=== PATIENT | female | born 1960 | race Caucasian/White ===

== ENCOUNTER 2016-10-07 17:32 | Observation (INO) | payer MEDICARE, OTHER ==
[2016-10-07] VITALS (9 sets, daily range): BP systolic 86–132; BP diastolic 50–82; PULSE 75–88; RESP 16–22; TEMP 98.2–98.7; O2SAT 94–96
[~2016-10-07] VITALS: Ht 172.7 cm; Wt 150.7 kg
[2016-10-07] MEDS ORDERED: SODIUM CHLOR 0.9% 1000 ML INJ 1,000 ML IV ONE ×2 (18:00→21:00)
[2016-10-07] MEDS ORDERED: KETOROLAC TROMETHAMINE 30 MG/ML (IVP) VIAL IVP ONE (18:00)
[2016-10-07] MEDS ORDERED: SODIUM CHLORIDE 0.9% FLUSH 10 ML FLUSH IVF PRN ×2 (18:00→21:15)
[2016-10-07] MEDS ORDERED: ONDANSETRON HCL 4 MG/2 ML VIAL IVP ONE (18:00)
--- NOTE | 2016-10-07 18:07 | PD ---
HPI Chief Complaint: Dizziness Time Seen by Provider: 17:57 Travel History International Travel<30 days: No Contact w/Intl Traveler<30days: No Traveled to known affect area: No History of Present Illness HPI 56-year-old female presents with lightheaded feeling, dysuria and lower abdominal pain over the past couple of days. She states she feels worse when she moves around. She denies other concurrent complaints. Quality is lightheaded. She states that she's been having intermittent dark stools. She notes prior history of urinary tract infections but denies history of bleeding or stones. She states that she is off her pain medication after she had back surgery. She denies modifying factors other than movement. PFSH Past Medical History Respiratory: Yes (asthma) ?: Not Past Surgical History Hysterectomy: Yes Social History Tobacco Use: No Allergies-Medications (Allergen,Severity, Reaction): Coded Allergies: Vancomycin (Verified Allergy, Intermediate, rash, 10/07/16) Reported Meds & Prescriptions Reported Meds & Active Scripts Active Zofran Odt (Ondansetron Odt) 4 Mg Tab 4 Mg SL Q6HR PRN Reported Combivent Respimat Inh (Ipratropium-Albuterol Inh) 20-100 [facility]/Act Aero 1 Puff INH QID Potassium Chloride ER (Potassium Chloride) 10 Meq Cap 10 Meq PO DAILY Omeprazole 20 Mg Tab 20 Mg PO DAILY Cymbalta DR (Duloxetine HCl) 60 Mg Capdr 60 Mg PO DAILY Cymbalta DR (Duloxetine HCl) 30 Mg Capdr 30 Mg PO DAILY Review of Systems Except as stated in HPI: all other systems reviewed are Neg Physical Exam Narrative GENERAL: Well-nourished, well-developed patient. uncomfortable SKIN: Warm and dry. HEAD: Normocephalic and atraumatic. EYES: No injection or drainage. ENT: No nasal drainage noted. NECK: Supple, trachea midline. CARDIOVASCULAR: Regular rate and rhythm RESPIRATORY: Breath sounds equal bilaterally. No accessory muscle use. GASTROINTESTINAL: Abdomen soft, ttp diffusely, nondistended. RECTAL EXAM: Performed with flat locker and after permission. No external hemorrhoid or fissure, stool is brown, non-bloody. NEUROLOGICAL: Awake and alert. Motor and sensory grossly within normal limits. Normal speech. Data Data Last Documented VS Orders Urinalysis - C+S If Indicated (10/07/16 17:34) Complete Blood Count With Diff (10/07/16 17:58) Comprehensive Metabolic Panel (10/07/16 17:58) Ct Abd/Pel W/O Iv Contrast (10/07/16 17:58) Ketorolac Inj (Toradol Inj) (10/07/16 18:00) Ondansetron Inj (Zofran Inj) (10/07/16 18:00) Sodium Chloride 0.9% Flush (Ns Flush) (10/07/16 18:00) Sodium Chlor 0.9% 1000 Ml Inj (Ns 1000 M (10/07/16 18:00) Lipase (10/07/16 17:58) Orthostatic Vital Signs (10/07/16 20:13) Hemoglobin (Hgb) (10/07/16 20:48) Drug Screen, Random Urine (10/07/16 20:48) Albuterol Neb (Albuterol Neb) (10/07/16 21:00) D-Dimer (10/07/16 20:48) Sodium Chlor 0.9% 1000 Ml Inj (Ns 1000 M (10/07/16 21:00) Chest, Single Ap (10/07/16 ) Diet Regular Basic (10/08/16 Breakfast) Vital Signs (Adult) EFREN.Q4H (10/07/16 21:08) Resp Oxygen Anatoliy C Titrat 1-4 L (10/07/16 ) Sodium Chlor 0.9% 1000 Ml Inj (Ns 1000 M (10/07/16 21:15) Ondansetron Inj (Zofran Inj) (10/07/16 21:15) Home Designer / Telemetry EFREN.Q8H (10/07/16 21:10) Admit Order (Ed Use Only) (10/07/16 ) ^ Saline Lock (10/07/16 21:13) Resp Oxygen Anatoliy C Titrat 1-4 L (10/07/16 ) Notify Dr: Other (10/07/16 21:13) Sodium Chloride 0.9% Flush (Ns Flush) (10/08/16 09:00) Sodium Chloride 0.9% Flush (Ns Flush) (10/07/16 21:15) Labs MDM Medical Decision Making Medical Screen Exam Complete: Yes Emergency Medical Condition: Yes Medical Record Reviewed: Yes (past history confirmed) Interpretation(s) CBC & BMP Diagram 10/07/16 18:00 ct abdomen pelvis no acute ua no uti Differential Diagnosis Stone, diverticulitis, anemia, renal failure, UTI Narrative Course Will check blood work, urinalysis, CT scan abdominal pelvis and dose with IV fluids, Toradol, Zofran and reevaluate ed workup no acute, given strict return precautions Diagnosis Primary Impression: Abdominal pain Qualified Code: R10.9 - Abdominal pain, unspecified location Additional Impression: Nausea Patient Instructions: General Instructions Additional Instructions: zofran and tylenol as needed, follow with gi, return as needed Med/Other Pt SpecificInfo: Prescription(s) given Scripts Furosemide 20 Mg Tab20 Mg PO DAILY #30 TAB Ref 0 Prov:Chau Hope MD 10/10/16 Spironolactone 25 Mg Tab25 Mg PO DAILY #30 TAB Ref 0 Prov:Chau Hope MD 10/10/16 Gabapentin (Neurontin)300 Mg [id number] Mg PO TID 30 Days Prov:Chau Hope MD 10/10/16 Ondansetron Odt (Zofran Odt)4 Mg Tab4 Mg SL Q6HR PRN (Nausea/Vomiting) #10 TAB Prov:Lexii Pacheco MD 10/07/16 Disposition: 01 DISCHARGE HOME Condition: Stable Lexii Pacheco MD Oct 07, 2016 18:07 Differential Comment Urine Color YELLOW Urine Turbidity CLEAR Urine pH 6.5 Urine Specific [place] 1.005 Urine Protein NEG mg/dL Urine Glucose (UA) NEG mg/dL Urine Ketones NEG mg/dL Urine Occult Blood NEG Urine Nitrite NEG Urine Bilirubin NEG Urine Leukocyte Esterase NEG Urine RBC 0-2 /hpf Urine WBC 0-2 /hpf Urine Squamous Epithelial 0-5 /hpf Cells Urine Bacteria NONE /hpf Microscopic Urinalysis Comment CULT NOT INDICATED Sodium Level 139 MEQ/L Potassium Level 4.4 MEQ/L Chloride Level 101 MEQ/L Carbon Dioxide Level 29.5 MEQ/L Anion Gap 9 MEQ/L Blood Urea Nitrogen 13 MG/DL Creatinine 0.96 MG/DL Estimat Glomerular Filtration 60 ML/MIN Rate Random Glucose 88 MG/DL Calcium Level 8.7 MG/DL Total Bilirubin 0.4 MG/DL Aspartate Amino Transf 39 U/L (AST/SGOT) Alanine Aminotransferase 71 U/L (ALT/SGPT) Alkaline Phosphatase 98 U/L Total Protein 7.2 GM/DL Albumin 3.3 GM/DL Lipase 136 U/L MDM Medical Decision Making Medical Screen Exam Complete: Yes Emergency Medical Condition: Yes Medical Record Reviewed: Yes (past history confirmed) Interpretation(s) CBC & BMP Diagram 10/07/16 18:00 ct abdomen pelvis no acute ua no uti Differential Diagnosis Stone, diverticulitis, anemia, renal failure, UTI Narrative Course Will check blood work, urinalysis, CT scan abdominal pelvis and dose with IV fluids, Toradol, Zofran and reevaluate ed workup no acute Diagnosis Primary Impression: Abdominal pain Qualified Code: R10.9 - Abdominal pain, unspecified location Additional Impression: Nausea Patient Instructions: General Instructions Additional Instructions: zofran and tylenol as needed, follow with gi, return as needed Med/Other Pt SpecificInfo: Prescription(s) given Scripts Ondansetron Odt (Zofran Odt)4 Mg Tab4 Mg SL Q6HR PRN (Nausea/Vomiting) #10 TAB Prov:Lexii Pacheco MD 10/07/16 Disposition: 01 DISCHARGE HOME Condition: Stable Lexii Pahceco MD Oct 07, 2016 18:07 Scripts Ondansetron Odt (Zofran Odt)4 Mg Tab4 Mg SL Q6HR PRN (Nausea/Vomiting) #10 TAB Prov:Lexii Pacheco MD 10/07/16 Disposition: 01 DISCHARGE HOME Condition: Stable Lexii Pacheco MD Oct 07, 2016 18:07
[2016-10-07 18:22] LABS: AUTOMATED NEUTROPHIL # 5.2 TH/MM3 (1.8-7.7); BASOPHIL # 0.1 TH/MM3 (0-0.2); BASOPHIL % 0.8 % (0.0-2.0); EOSINOPHIL % 0.1 % (0.0-4.0); HEMATOCRIT 39.1 % (35.0-46.0); HEMO FLAGS DIFF FINAL; LYMPH % 30.1 % (9.0-44.0); LYMPHOCYTE # 2.4 TH/MM3 (1.0-4.8); MEAN CELL VOLUME 87.2 FL (80.0-100.0); MEAN CORPUSCULAR HEMOGLOBIN 29.8 PG (27.0-34.0); MEAN CORPUSCULAR HGB CONC 34.2 % (32.0-36.0); MONO % 5.5 % (0.0-8.0); NEUT % 63.5 % (16.0-70.0); PLATELET COUNT 237 TH/MM3 (150-450); RED BLOOD COUNT 4.48 MIL/MM3 (4.00-5.30); RED CELL DISTRIBUTION WIDTH 13.3 % (11.6-17.2); WHITE BLOOD COUNT 8.1 TH/MM3 (4.0-11.0)
[2016-10-07 18:28] LABS: BLOOD, URINE NEG (NEG); GLUCOSE,URINE NEG (NEG); KETONE, URINE NEG (NEG); NITRITE,URINE NEG (NEG); PH, URINE 6.5 (5.0-8.5)
[2016-10-07 18:30] LABS: CHLORIDE 101 MEQ/L (98-107); POTASSIUM 4.4 MEQ/L (3.5-5.1); SODIUM (NA) 139 MEQ/L (136-145)
[2016-10-07 18:34] LABS: ANION GAP 9 MEQ/L (5-15); BICARBONATE 29.5 MEQ/L (21.0-32.0); BLOOD UREA NITROGEN 13 MG/DL (7-18)
[2016-10-07 18:37] LABS: ALT (GPT) 71 U/L (10-53); AST (GOT) 39 U/L (15-37); GLOMERULAR FILTRATION RATE 60 ML/MIN (>89)
[2016-10-07 18:38] LABS: TOTAL BILIRUBIN ADULT 0.4 MG/DL (0.2-1.0)
[2016-10-07] MEDS ORDERED: CYMB30CA PO (18:39)
[2016-10-07] MEDS ORDERED: CYMB60CA PO (18:39)
[2016-10-07 18:40] LABS: ALKALINE PHOSPHATASE 98 U/L (45-117)
[2016-10-07 18:43] LABS: URINE COLOR YELLOW (YELLW/STRAW)
[2016-10-07 18:44] LABS: COMMENT (UR) CULT NOT INDICATED; CULTURE IF INDICATED CULT NOT INDICATED; RBC, URINE 0-2 /hpf (0-3); SQUAMOUS EPITHELIAL CELL URINE 0-5 /hpf (0-5); WBC, URINE 0-2 /hpf (0-5)
[2016-10-07] MEDS ORDERED: GABA800T PO (18:45)
[2016-10-07] MEDS ORDERED: ZOLP10TA3 PO (18:45)
[2016-10-07] MEDS ORDERED: IBUP800T23 PO (18:45)
[2016-10-07] MEDS ORDERED: POTA10CA PO (18:45)
[2016-10-07] MEDS ORDERED: METH500T3 PO (18:45)
[2016-10-07] MEDS ORDERED: OMEP20TA PO (18:45)
[2016-10-07] MEDS ORDERED: SPIR50TA PO (18:45)
[2016-10-07] MEDS ORDERED: TIZA4CAP3 PO (18:47)
[2016-10-07] MEDS ORDERED: IPRAAER INH (18:47)
--- NOTE | 2016-10-07 19:01 | RADHPO ---
EXAM DATE/TIME: 10/07/2016 18:31 [facility] COMPARISON: No previous studies available for comparison. INDICATIONS : Dysuria with lower back pain. ORAL CONTRAST: No oral contrast ingested. RADIATION DOSE: 27.92 CTDIvol (mGy) MEDICAL HISTORY : None SURGICAL HISTORY : Hysterectomy. Fusion, lumbar. There is no constipation. No bowel obstruction. No adenopathy. ENCOUNTER: Initial ACUITY: 2 weeks PAIN SCALE: 8/10 LOCATION: Bilateral Paraspinal TECHNIQUE: Volumetric scanning of the abdomen and pelvis was performed. Using automated exposure control and ad justment of the mA and/or kV according to patient size, radiation dose was kept as low as reasonably achievable to obtain optimal diagnostic quality images. FINDINGS: Lung bases are clear. No acute findings within the visualized liver, spleen, adrenals, kidneys or thomason creas. No calcified gallstones or biliary ductal dilatation. Postoperative changes are noted in the lumbar spine with fusion. CONCLUSION: 1. No acute findings. Specifically no renal calculi or evidence for obstructive uropathy. 2. Previous fusion lower lumbar spine. 3. Mild constipation. Parker Hidalgo MD on October 07, 2016 at 18:55 Board Certified Radiologist. This report was verified electronically.
[2016-10-07] MEDS ORDERED: ZOFR4TAB3 SL (19:02)
[2016-10-07] MEDS ORDERED: RESP: ALBUTEROL 2.5 MG/3 ML NEB (SCH) NEB ONE (21:00)
[2016-10-07] MEDS ORDERED: ONDANSETRON HCL 4 MG/2 ML VIAL IV PUSH PRN (21:15)
[2016-10-07] MEDS: SODIUM CHLOR 0.9% 1000 ML INJ 1,000 ML IV SCH (21:15)
[2016-10-07 21:21] LABS: AMPHETAMINE, URINE NEG (NEG)
[2016-10-07 21:22] LABS: BARBITURATES, URINE NEG (NEG)
[2016-10-07 21:31] LABS: MAGNESIUM 2.1 MG/DL (1.5-2.5)
[2016-10-07 21:37] LABS: COCAINE, URINE NEG (NEG)
[2016-10-07 21:40] LABS: CREATINE KINASE 60 U/L (26-192)
--- NOTE | 2016-10-07 21:58 | RADHPO ---
EXAM DATE/TIME: 10/07/2016 21:03 [facility] COMPARISON: No previous studies available for comparison. INDICATIONS : Short of breath and dizziness. MEDICAL HISTORY : Hysterectomy. Fusion, lumbar. SURGICAL HISTORY : None. ENCOUNTER: Initial ACUITY: 1 day PAIN SCORE: 0/10 LOCATION: Bilateral chest FINDINGS: A single view of the chest demonstrates the lungs to be symmetrically aerated without evidence of mas s, infiltrate or effusion. The cardiomediastinal contours are unremarkable. Osseous structures are intact. CONCLUSION: No acute disease. Parker Hidalgo MD on October 07, 2016 at 21:55 Board Certified Radiologist. This report was verified electronically.
--- NOTE | 2016-10-07 22:03 | PD ---
Physical Exam Date Seen by Provider: Oct 07, 2016 Time Seen by Provider: 19:45 Narrative GENERAL: Well-developed obese female in no acute distress no respiratory distress with hypotensive blood pressure and room air O2 sat of 90% SKIN: Warm and dry. HEAD: Normocephalic. EYES: No scleral icterus. No injection or drainage. NECK: Supple, trachea midline. No JVD or lymphadenopathy. CARDIOVASCULAR: Regular rate and rhythm without murmurs, gallops, or rubs. RESPIRATORY: Breath sounds equal bilaterally. No accessory muscle use. GASTROINTESTINAL: Abdomen soft, non-tender, nondistended. MUSCULOSKELETAL: No cyanosis, or edema. BACK: Nontender without obvious deformity. No CVA tenderness. Data Data Last Documented VS Vital Signs Date Time Temp Pulse Resp B/P Pulse Ox O2 Delivery O2 Flow Rate FiO2 10/07/16 21:00 94 21 10/07/16 20:49 76 18 86/51 Room Air 10/07/16 19:50 98.2 Orders Urinalysis - C+S If Indicated (10/07/16 17:34) Complete Blood Count With Diff (10/07/16 17:58) Comprehensive Metabolic Panel (10/07/16 17:58) Ct Abd/Pel W/O Iv Contrast (10/07/16 17:58) Ketorolac Inj (Toradol Inj) (10/07/16 18:00) Ondansetron Inj (Zofran Inj) (10/07/16 18:00) Sodium Chloride 0.9% Flush (Ns Flush) (10/07/16 18:00) Sodium Chlor 0.9% 1000 Ml Inj (Ns 1000 M (10/07/16 18:00) Lipase (10/07/16 17:58) Orthostatic Vital Signs (10/07/16 20:13) Hemoglobin (Hgb) (10/07/16 20:48) Drug Screen, Random Urine (10/07/16 20:48) Albuterol Neb (Albuterol Neb) (10/07/16 21:00) D-Dimer (10/07/16 20:48) Sodium Chlor 0.9% 1000 Ml Inj (Ns 1000 M (10/07/16 21:00) Chest, Single Ap (10/07/16 ) Diet Regular Basic (10/08/16 Breakfast) Vital Signs (Adult) EFREN.Q4H (10/07/16 21:08) Resp Oxygen Anatoliy C Titrat 1-4 L (10/07/16 ) Sodium Chlor 0.9% 1000 Ml Inj (Ns 1000 M (10/07/16 21:15) Ondansetron Inj (Zofran Inj) (10/07/16 21:15) Deckhand Clam Dredge / Telemetry EFREN.Q8H (10/07/16 21:10) Admit Order (Ed Use Only) (10/07/16 ) ^ Saline Lock (10/07/16 21:13) Resp Oxygen Anatoliy C Titrat 1-4 L (10/07/16 ) ^ Notify Dr: Other (10/07/16 21:13) Sodium Chloride 0.9% Flush (Ns Flush) (10/08/16 09:00) Sodium Chloride 0.9% Flush (Ns Flush) (10/07/16 21:15) Labs Laboratory Tests Test 10/07/16 10/07/16 10/07/16 10/07/16 18:00 18:13 18:18 20:15 White Blood Count 8.1 TH/MM3 Red Blood Count 4.48 MIL/MM3 Hemoglobin 13.4 GM/DL 12.0 GM/DL Hematocrit 39.1 % Mean Corpuscular Volume 87.2 FL Mean Corpuscular Hemoglobin 29.8 PG Mean Corpuscular Hemoglobin 34.2 % Concent Red Cell Distribution Width 13.3 % Platelet Count 237 TH/MM3 Mean Platelet Volume 8.5 FL Neutrophils (%) (Auto) 63.5 % Lymphocytes (%) (Auto) 30.1 % Monocytes (%) (Auto) 5.5 % Eosinophils (%) (Auto) 0.1 % Basophils (%) (Auto) 0.8 % Neutrophils # (Auto) 5.2 TH/MM3 Lymphocytes # (Auto) 2.4 TH/MM3 Monocytes # (Auto) 0.4 TH/MM3 Eosinophils # (Auto) 0.0 TH/MM3 Basophils # (Auto) 0.1 TH/MM3 CBC Comment DIFF FINAL Differential Comment Urine Color YELLOW Urine Turbidity CLEAR Urine pH 6.5 Urine Specific [place] 1.005 Urine Protein NEG mg/dL Urine Glucose (UA) NEG mg/dL Urine Ketones NEG mg/dL Urine Occult Blood NEG Urine Nitrite NEG Urine Bilirubin NEG Urine Leukocyte Esterase NEG Urine RBC 0-2 /hpf Urine WBC 0-2 /hpf Urine Squamous Epithelial 0-5 /hpf Cells Urine Bacteria NONE /hpf Microscopic Urinalysis Comment CULT NOT INDICATED Sodium Level 139 MEQ/L Potassium Level 4.4 MEQ/L Chloride Level 101 MEQ/L Carbon Dioxide Level 29.5 MEQ/L Anion Gap 9 MEQ/L Blood Urea Nitrogen 13 MG/DL Creatinine 0.96 MG/DL Estimat Glomerular Filtration 60 ML/MIN Rate Random Glucose 88 MG/DL Calcium Level 8.7 MG/DL Total Bilirubin 0.4 MG/DL Aspartate Amino Transf 39 U/L (AST/SGOT) Alanine Aminotransferase 71 U/L (ALT/SGPT) Alkaline Phosphatase 98 U/L Total Protein 7.2 GM/DL Albumin 3.3 GM/DL Lipase 136 U/L Magnesium Level 2.1 MG/DL Total Creatine Kinase 60 U/L Troponin I LESS THAN 0.02 NG/ML D-Dimer Quantitative (PE/DVT) 0.40 MG/L FEU Urine Opiates Screen NEG Urine Barbiturates Screen NEG Urine Amphetamines Screen NEG Urine Benzodiazepines Screen NEG Urine Cocaine Screen NEG Urine Cannabinoids Screen NEG [facility] Medical Record Reviewed: Yes Supervised Visit with MERRICK: No Interpretation(s) EKG normal sinus rhythm rate [address] elevation or injury pattern change noted no ectopy age-indeterminate QS inferiorly Troponin I: Less than 0.02; CK: 60, not elevated Repeat hemoglobin 12, this is after 1 L normal saline D-dimer is within normal range at 0.4, not elevated Urine drug screen negative Last Impressions Abdomen/Pelvis CT 10/07/16 1758 Signed Impressions: Service Date/Time: Friday, October 07, 2016 18:31 - CONCLUSION: 1. No acute findings. Specifically no renal calculi or evidence for obstructive uropathy. 2. Previous fusion lower lumbar spine. 3. Mild constipation. Parker Hidalgo MD Chest X-Ray 10/07/16 0000 Signed Impressions: Service Date/Time: Friday, October 07, 2016 21:03 - CONCLUSION: No acute disease. Parker Hidalgo MD CBC & BMP Diagram 10/07/16 18:00 10/07/16 20:15 Differential Diagnosis please refer to Dr Pacheco's dictation Narrative Course Accepted in transfer of care from Dr. Pacheco for follow-up of response to IV fluids after hypotensive episode and patient disposition After 1 L of normal saline patient continues to have episodes of hypotension with complaint of generalized weakness and intermittent O2 saturations that dipped to the 90- 91% range but with repositioning and stimulation patient saturations returned to 95-96%; patient continues to complain of generalized weakness reporting she is progressively felt worse over the past 2 weeks. Patient moved here at the beginning of August from [place]. Patient is not established with primary care provider she had refills of her chronic medications from her previous provider. Due to recurrent episodes of low blood pressure additional liter of normal saline administered EKG performed which is sinus rhythm with age indeterminate Q waves inferiorly in lead [address] elevation or injury pattern change noted rate 78. Patient's case discussed with on-call have his physician will place patient is an observation here at [place] is aware that additional tests have been ordered. CK and troponin added 60/less than 0.02 respectively. Hemoglobin performed which is 12 but this is after a liter of normal saline d-dimer obtained at 0.4 not elevated and urine drug screen is negative. Patient also given albuterol updraft treatment times one Physician Communication Physician Communication discussed with Dr Chang -- obs admit to [facility] --request update of abnormal findings---aware additional IV fluids Diagnosis Primary Impression: Abdominal pain Qualified Code: R10.9 - Abdominal pain, unspecified location Additional Impressions: Nausea Generalized weakness Dizziness Admitting Information Admitting Physician Requests: Observation Patient Instructions: General Instructions Additional Instruction: zofran and tylenol as needed, follow with gi, return as needed Scripts Ondansetron Odt (Zofran Odt)4 Mg Tab4 Mg SL Q6HR PRN (Nausea/Vomiting) #10 TAB Prov:Lexii Pacheco MD 10/07/16 Disposition: 01 DISCHARGE HOME Condition: Stable Theresa Muro MD Oct 07, 2016 22:03
[2016-10-08] VITALS (7 sets, daily range): BP systolic 104–163; BP diastolic 75–100; PULSE 76–82; RESP 17–20; TEMP 97.3–98.7; O2SAT 92–95
[2016-10-08] MEDS ORDERED: KETOROLAC TROMETHAMINE 30 MG/ML (IVP) VIAL IV PUSH ONE (04:30)
[2016-10-08] MEDS: SODIUM CHLOR 0.9% 1000 ML INJ 1,000 ML IV SCH ×2 (05:26→17:15)
[2016-10-08] MEDS: SODIUM CHLORIDE 0.9% FLUSH 10 ML FLUSH IV FLUSH SCH ×2 (07:12→21:00)
--- NOTE | 2016-10-08 12:53 | EKG ---
Date Performed: 10/07/2016 Time Performed: 21:25:04 PTAGE: 56 years EKG: Sinus rhythm Possible inferior infarct - age undetermined Abnormal ECG NO PREVIOUS TRACING DOCTOR: True Wang Interpretating Date/Time 10/08/2016 12:52:26
[2016-10-08] MEDS ORDERED: MAGNESIUM HYDROXIDE SUSP 30 ML CUP PO PRN (14:15)
--- NOTE | 2016-10-08 14:15 | HHI.HP ---
HPI Service [facility] Primary Care Physician No Primary Care Physician Admission Diagnosis dizziness; generalized weakness Diagnoses: (1) Abdominal pain Diagnosis: Principal (2) Leg pain, bilateral Diagnosis: Principal (3) Pre-syncope Diagnosis: Principal Chief Complaint: "stomach", back, and leg pain; dizziness Travel History International Travel<30 Days: No Contact w/Intl Traveler <30 Da: No Traveled to Known Affected Are: No History of Present Illness 56-year-old female with history of asthma, chronic back pain and neuropathy, Bipolar disorder, HTN presents with complaint of "stomach" and back and leg pain as well as dizziness/lightheadedness. Patient admits to pain over bilateral lower quadrants, dull ache, constant. Denies any alleviating or exacerbating factors. Her last BM was the day before yesterday. She has had nausea for the past couple of days. She denies any chest pain or vomiting. She states she has had a couple of black stools and denies taking any Pepto- Bismol or iron supplementation but does state she has been taking a lot of Motrin and Aleve for the last week. She additionally states she was treated for UTI 10 days ago and only has mild dysuria at this time which is much improved from prior. She complains of dizziness for the last couple of days feeling like she is off balance and lightheaded upon standing. She admits to a few palpitations when lightheaded. Admits to fatigue and shortness of breath. She uses an inhaler. Patient states she has pain down both legs in the front describing it as sharp and shooting, constant. She has chronic numbness and tingling as she has neuropathy. She denies anything making it better or worse. Denies any recent medication changes. Does not have a regular PCP. Review of Systems Except as stated in HPI: all other systems reviewed are Neg Past Family Social History Past Medical History Asthma Back pain, neuropathy BPD HTN chronic leg swelling Past Surgical History 2 back surgeries Appendectomy Hysterectomy ORIF right and left tib-fib Reported Medications Reported Meds & Active Scripts Active Zofran Odt (Ondansetron Odt) 4 Mg Tab 4 Mg SL Q6HR PRN Reported Tizanidine (Tizanidine HCl) 4 Mg Cap 4 Mg PO QID Combivent Respimat Inh (Ipratropium-Albuterol Inh) 20-100 Usp/Act Aero 1 Puff INH QID Methocarbamol 500 Mg Tab 500 Mg PO QID Ibuprofen 800 Mg Tab 800 Mg PO Q8H PRN Spironolactone 50 Mg Tab 50 Mg PO DAILY Potassium Chloride ER (Potassium Chloride) 10 Meq Cap 10 Meq PO DAILY Omeprazole 20 Mg Tab 20 Mg PO DAILY Gabapentin 800 Mg Tab 800 Mg PO TID Cymbalta DR (Duloxetine HCl) 60 Mg Capdr 60 Mg PO DAILY Cymbalta DR (Duloxetine HCl) 30 Mg Capdr 30 Mg PO DAILY Allergies: Coded Allergies: Vancomycin (Verified Allergy, Intermediate, rash, 10/07/16) Family History Mother: of hypoxia? at age 60. Father: reason of unknown Social History Smokes 5 cigarettes per day; has smoked for 25 years. Denies alcohol use. Denies illicit drug use. Physical Exam Vital Signs Vital Signs Date Time Temp Pulse Resp B/P Pulse Ox O2 Delivery O2 Flow Rate FiO2 10/08/16 12:00 97.7 80 18 163/89 95 10/08/16 08:00 78 10/08/16 08:00 97.9 77 18 104/75 94 10/08/16 07:30 92 21 10/07/16 23:15 98.7 82 20 122/76 95 10/07/16 23:08 116/67 94 10/07/16 21:00 94 21 10/07/16 20:49 76 18 86/51 94 Room Air 10/07/16 20:18 76 18 90/53 86 20 102/68 88 22 119/68 10/07/16 19:50 98.2 75 18 100/57 96 Room Air 10/07/16 19:22 79 18 103/62 96 Room Air 10/07/16 19:06 78 18 86/50 96 Room Air 10/07/16 19:06 18 96 Room Air 10/07/16 17:49 Room Air 10/07/16 17:36 98.5 88 16 132/82 95 Physical Exam GENERAL: Morbidly obese well-developed patient, in no apparent distress. SKIN: No rashes, ecchymoses or lesions. Warm and dry. HEAD: Atraumatic. Normocephalic. EYES: Pupils equal round and reactive. Extraocular motions intact. No scleral icterus. No injection or drainage. ENT: Throat without erythema, tonsillar hypertrophy or exudate. Uvula midline. Airway patent. NECK: No carotid bruits bilaterally. CARDIOVASCULAR: Regular rate and rhythm without murmurs, gallops, or rubs. RESPIRATORY: Clear to auscultation. Breath sounds equal bilaterally. No wheezes , rales, or rhonchi. GASTROINTESTINAL: Hypoactive bowel sounds. Abdomen soft, nondistended. Tender over bilateral lower quadrants, but no guarding. MUSCULOSKELETAL: No lower extremity edema bilaterally. NEUROLOGICAL: Awake and alert. Motor grossly within normal limits. Five out of 5 muscle strength in bilateral arms and legs. Normal speech. Laboratory Laboratory Tests Test 10/07/16 10/07/16 10/07/16 10/07/16 18:00 18:13 18:18 20:15 White Blood Count 8.1 Red Blood Count 4.48 Hemoglobin 13.4 12.0 Hematocrit 39.1 Mean Corpuscular Volume 87.2 Mean Corpuscular Hemoglobin 29.8 Mean Corpuscular Hemoglobin 34.2 Concent Red Cell Distribution Width 13.3 Platelet Count 237 Mean Platelet Volume 8.5 Neutrophils (%) (Auto) 63.5 Lymphocytes (%) (Auto) 30.1 Monocytes (%) (Auto) 5.5 Eosinophils (%) (Auto) 0.1 Basophils (%) (Auto) 0.8 Neutrophils # (Auto) 5.2 Lymphocytes # (Auto) 2.4 Monocytes # (Auto) 0.4 Eosinophils # (Auto) 0.0 Basophils # (Auto) 0.1 CBC Comment DIFF FINAL Differential Comment Urine Color YELLOW Urine Turbidity CLEAR Urine pH 6.5 Urine Specific [place] 1.005 Urine Protein NEG Urine Glucose (UA) NEG Urine Ketones NEG Urine Occult Blood NEG Urine Nitrite NEG Urine Bilirubin NEG Urine Leukocyte Esterase NEG Urine RBC 0-2 Urine WBC 0-2 Urine Squamous Epithelial 0-5 Cells Urine Bacteria NONE Microscopic Urinalysis Comment CULT NOT INDICATED Sodium Level 139 Potassium Level 4.4 Chloride Level 101 Carbon Dioxide Level 29.5 Anion Gap 9 Blood Urea Nitrogen 13 Creatinine 0.96 Estimat Glomerular Filtration 60 Rate Random Glucose 88 Calcium Level 8.7 Total Bilirubin 0.4 Aspartate Amino Transf 39 (AST/SGOT) Alanine Aminotransferase 71 (ALT/SGPT) Alkaline Phosphatase 98 Total Protein 7.2 Albumin 3.3 Lipase 136 Magnesium Level 2.1 Total Creatine Kinase 60 Troponin I LESS THAN 0.02 D-Dimer Quantitative (PE/DVT) 0.40 Urine Opiates Screen NEG Urine Barbiturates Screen NEG Urine Amphetamines Screen NEG Urine Benzodiazepines Screen NEG Urine Cocaine Screen NEG Urine Cannabinoids Screen NEG Result Diagram: 10/07/16201410/07/16 1800 Imaging Last Impressions Abdomen/Pelvis CT 10/07/16 1758 Signed Impressions: Service Date/Time: Friday, October 07, 2016 18:31 - CONCLUSION: 1. No acute findings. Specifically no renal calculi or evidence for obstructive uropathy. 2. Previous fusion lower lumbar spine. 3. Mild constipation. Parker Hidalgo MD Chest X-Ray 10/07/16 0000 Signed Impressions: Service Date/Time: Friday, October 07, 2016 21:03 - CONCLUSION: No acute disease. Parker Hidalgo MD Assessment and Plan Assessment and Plan 56-year-old female with: Abdominal pain: Bilateral lower quadrants, and dull ache in the past few days. Patient has had a couple black stool taking NSAIDs, but rectal exam was performed in the ED with evidence of brown stool and no evidence of blood. Hemoglobin is stable. No elevation in white blood cell count. CT of the abdomen and pelvis shows mild constipation. AST and ALT only minimally elevated. Lipase normal. Afebrile. -Obtain new abdominal x-ray today. -Fleets enema and dose of magnesium hydroxide ordered. Magnesium hydroxide as needed. -Zofran prn nausea -Avoid opiates. Avoid tramadol due to interaction with psych medications. Tylenol for pain. Bilateral leg pain: Patient has neuropathy and she has had previous back surgeries. She has normal strength in both legs. -Continue gabapentin at lower dose Presyncope: Started a couple of days ago. Admits to a few palpitations when lightheaded. Patient had multiple episodes of hypotension, but now is hypertensive at 163/89 at noon although did not receive her BP medication this morning. -Monitor telemetry -Orthostatic vital signs -Echo -Carotid ultrasound -IVF Chronic medical problems: Continue home medications. DVT prevention: SCDs/TEDs. Written by Whit Davis PA-C acting as scribe for Dr. Hope on 10/08/16 at ~ 1345. All or portions of this note were transcribed by scribe [Whit Davis]. I, Dr. Chau Hope personally performed the history, physical exam, and medical decision making; and confirmed the accuracy of the information in the transcribed note. Authenticated by Dr. Chau Hope on 10/08/16 at 23:10. Patient later informed me that she also takes Ariprazole, trazodone, and Lasix. Nurse to amend med rec. Discussed Condition With patient Problem Qualifiers (1) Abdominal pain: Qualified Code: R10.9 - Abdominal pain, unspecified location Whit Davis Oct 08, 2016 14:15 Chau Hope MD Oct 08, 2016 23:11
[2016-10-08] MEDS ORDERED: ONDANSETRON HCL 4 MG/2 ML VIAL IV PUSH PRN (15:00)
[2016-10-08] MEDS ORDERED: SOD PHOSPHATE/SOD BIPHOSPHATE (ADULT) ENEMA 133ML PR ONE (15:15)
[2016-10-08] MEDS ORDERED: MAGNESIUM HYDROXIDE SUSP 30 ML CUP PO ONE (15:15)
--- NOTE | 2016-10-08 15:36 | RADHPO ---
EXAM DATE/TIME: 10/08/2016 15:01 [facility] COMPARISON: No previous studies available for comparison. INDICATIONS : Abdominal pain. Evaluate for obstruction. MEDICAL HISTORY : None. SURGICAL HISTORY : Hysterectomy. Appendectomy. ENCOUNTER: Subsequent ACUITY: 2 weeks PAIN SCORE: 6/10 LOCATION: Abdomen. FINDINGS: There is gas in nondistended loops of small and large bowel. The visualized lower lungs are clear. Prominent degenerative changes in lower lumbar spine with metallic markers suggesting interspace surg ruth. CONCLUSION: No dilated loops of small or large bowel. Dallas Joe MD on October 08, 2016 at 15:33 Board Certified Radiologist. This report was verified electronically.
--- NOTE | 2016-10-08 16:51 | RADHPO ---
EXAM DATE/TIME: 10/08/2016 15:14 [facility] COMPARISON: No previous studies available for comparison. INDICATIONS : Dizziness. MEDICAL HISTORY : Hypercholesterolemia. Hypertension. Hepatitis C. Syncope. Asthma. Arthritis. SURGICAL HISTORY : Appendectomy. Hysterectomy. Oophorectomy. Orthopedic surgery, right hand and bilateral tib/fib. Spi nal surgery. ENCOUNTER: Initial ACUITY: 1 day PAIN SCORE: 0/10 LOCATION: Bilateral neck PEAK SYSTOLIC VELOCITIES (cm/sec): ICA/CCA RATIO: Right: 1.5 Left: 0.9 ICA: Right: 108 Left: 100 CCA: Right: 74 Left: 110 ECA: Right: 178 Left: 119 VERTEBRAL: Right: 51 antegrade Left: 56 antegrade Elevated flow velocities and ICA/CCA ratios have been found to correlate with increased degrees of vessel stenosis, calculated as percentage of diameter relative to a normal segment of distal ICA/CCA FINDINGS: RIGHT CAROTID: No significant stenosis is visualized. The waveforms are within normal limits. LEFT CAROTID: No significant stenosis is visualized. The waveforms are within normal limits. VERTEBRAL ARTERIES: Antegrade flow is seen in both vertebral arteries. MISCELLANEOUS: None. CONCLUSION: No evidence of flow-limiting carotid stenosis. Farshad Herron MD on October 08, 2016 at 16:49 Board Certified Radiologist. This report was verified electronically.
[2016-10-08] MEDS: GABAPENTIN 300 MG CAP PO SCH (18:00)
[2016-10-08] MEDS ORDERED: RESP: ALBUTEROL 2.5 MG/IPRATROPIUM 0.5 MG NEB (PRN) NEB (18:30)
[2016-10-08] MEDS ORDERED: ARIP1TAB13 PO (18:55)
[2016-10-08] MEDS ORDERED: FURO40TA PO (18:56)
[2016-10-08] MEDS ORDERED: TRAZ150T75 PO (18:56)
[2016-10-08] MEDS: ACETAMINOPHEN 325 MG TAB PO PRN (20:36)
[2016-10-09] VITALS: BP 127/84; PULSE 82; RESP 20; TEMP 96.2; O2SAT 95
[2016-10-09 04:00] VITALS: BP 152/71; PULSE 69; RESP 18; TEMP 97.2; O2SAT 95
[2016-10-09] MEDS: ACETAMINOPHEN 325 MG TAB PO PRN ×4 (04:26→22:12)
[2016-10-09] MEDS: SODIUM CHLOR 0.9% 1000 ML INJ 1,000 ML IV SCH ×2 (04:27→13:15)
[2016-10-09 05:28] LABS: AUTOMATED NEUTROPHIL # 3.1 TH/MM3 (1.8-7.7); BASOPHIL % 0.5 % (0.0-2.0); EOSINOPHIL % 0.6 % (0.0-4.0); HEMATOCRIT 37.5 % (35.0-46.0); HEMO FLAGS DIFF FINAL; LYMPH % 33.9 % (9.0-44.0); LYMPHOCYTE # 1.7 TH/MM3 (1.0-4.8); MEAN CELL VOLUME 87.9 FL (80.0-100.0); MEAN CORPUSCULAR HEMOGLOBIN 29.4 PG (27.0-34.0); MEAN CORPUSCULAR HGB CONC 33.5 % (32.0-36.0); MONO % 5.7 % (0.0-8.0); NEUT % 59.3 % (16.0-70.0); PLATELET COUNT 197 TH/MM3 (150-450); RED BLOOD COUNT 4.26 MIL/MM3 (4.00-5.30); RED CELL DISTRIBUTION WIDTH 13.9 % (11.6-17.2); WHITE BLOOD COUNT 5.1 TH/MM3 (4.0-11.0)
[2016-10-09 05:44] LABS: BICARBONATE 30.7 MEQ/L (21.0-32.0); MAGNESIUM 2.4 MG/DL (1.5-2.5); POTASSIUM 4.3 MEQ/L (3.5-5.1)
[2016-10-09 08:00] VITALS: BP 160/87; PULSE 74; RESP 20; TEMP 97.6; O2SAT 96
[2016-10-09] MEDS: SODIUM CHLORIDE 0.9% FLUSH 10 ML FLUSH IV FLUSH SCH ×2 (09:00→21:00)
[2016-10-09] MEDS ORDERED: DULoxetine HCl DR 60 MG CAP PO SCH (09:00)
[2016-10-09] MEDS ORDERED: PNEUMOCOCCAL POLYVALENT INJ 25 MCG/0.5 ML SYR IM ONE (10:00)
[2016-10-09] MEDS: FUROSEMIDE 40 MG TAB PO SCH (10:16)
[2016-10-09] MEDS: POTASSIUM CHLORIDE 10 MEQ CONTROLLED RELEASE TAB PO SCH (10:17)
[2016-10-09] MEDS: GABAPENTIN 300 MG CAP PO SCH ×3 (10:17→16:39)
[2016-10-09] MEDS: DULoxetine HCl DR 30 MG CAP PO SCH (10:17)
[2016-10-09] MEDS: PANTOPRAZOLE SOD 20 MG DELAYED RELEASE TAB PO SCH (10:17)
[2016-10-09] MEDS: SPIRONOLACTONE 50 MG TAB PO SCH (10:17)
[2016-10-09 12:00] VITALS: BP 169/86; PULSE 86; RESP 20; TEMP 96.9; O2SAT 96
[2016-10-09 16:00] VITALS: BP 130/83; PULSE 94; RESP 20; TEMP 98; O2SAT 95
[2016-10-09] MEDS: 1/2 NS + KCL 20 MEQ INJ 1,000 ML IV SCH (16:40)
[2016-10-09 20:00] VITALS: BP 119/71; PULSE 81; PULSE 82; RESP 20; TEMP 97.7; O2SAT 95
[2016-10-09] MEDS ORDERED: ARIPiprazole 15 MG TAB PO SCH (21:00)
--- NOTE | 2016-10-09 23:33 | HHI.PR ---
Subjective Remarks Patient seen today around 2 PM. She says she is feeling better. No abdominal pain. She does report some lightheadedness with walking, however has been up out of bed multiple times. Objective Vital Signs Date Time Temp Pulse Resp B/P Pulse Ox O2 Delivery O2 Flow Rate FiO2 10/09/16 20:00 97.7 81 20 119/71 95 10/09/16 17:44 18 10/09/16 16:00 98.0 94 20 130/83 95 10/09/16 12:00 96.9 86 20 169/86 96 10/09/16 08:00 97.6 74 20 160/87 96 10/09/16 04:00 97.2 69 18 152/71 95 10/09/16 00:00 96.2 82 20 127/84 95 I/O 10/08/16 10/08/16 10/08/16 10/09/16 10/09/16 10/09/16 07:00 15:00 23:00 07:00 15:00 23:00 Intake Total 200 ml 960 ml 240 ml 1050 ml Balance 200 ml 960 ml 240 ml 1050 ml Intake Oral 200 ml 960 ml 240 ml 1050 ml # Voids 1 2 1 5 1 # Bowel Movements 0 0 0 1 Result Diagram: 10/09/16 0436 10/09/16 0436 Objective Remarks GENERAL: obese. Sitting up in bed. Appears comfortable. Alert and oriented 3. SKIN: Warm and dry. HEAD: Normocephalic. EYES: No scleral icterus. No injection or drainage. NECK: Supple, trachea midline. No JVD. CARDIOVASCULAR: Regular rate and rhythm without murmurs, gallops, or rubs. RESPIRATORY: Breath sounds equal bilaterally. No accessory muscle use. GASTROINTESTINAL: Abdomen soft, non-tender, nondistended. MUSCULOSKELETAL: No cyanosis, or edema. BACK: Nontender without obvious deformity. No CVA tenderness. A/P Assessment and Plan 56-year-old female with: //Abdominal pain: Bilateral lower quadrants, and dull ache in the past few days. Patient has had a couple black stool taking NSAIDs, but rectal exam was performed in the ED with evidence of brown stool and no evidence of blood. Hemoglobin is stable. No elevation in white blood cell count. CT of the abdomen and pelvis shows mild constipation. AST and ALT only minimally elevated. Lipase normal. Afebrile. -Obtain new abdominal x-ray today. -Fleets enema and dose of magnesium hydroxide ordered. Magnesium hydroxide as needed. -Zofran prn nausea -Avoid opiates. Avoid tramadol due to interaction with psych medications. Tylenol for pain. -= Constipation resolved. Continue to monitor. //Bilateral leg pain: Patient has neuropathy and she has had previous back surgeries. She has normal strength in both legs. -Continue gabapentin at lower dose //Presyncope: Started a couple of days ago. Admits to a few palpitations when lightheaded. Patient had multiple episodes of hypotension, but now is hypertensive at 163/89 at noon although did not receive her BP medication this morning. -Monitor telemetry -Orthostatic vital signs -Echo still pending. -Carotid ultrasound with no significant stenosis. -IVF = Follow-up echo. //Chronic medical problems: Continue home medications. //DVT prevention: SCDs/TEDs. Discharge Planning pending echocardiogram. Chau Hope MD Oct 09, 2016 23:33
[2016-10-10] VITALS: BP 126/85; PULSE 79; RESP 20; TEMP 96.6; O2SAT 96
[2016-10-10] MEDS: 1/2 NS + KCL 20 MEQ INJ 1,000 ML IV SCH ×2 (03:21→13:54)
[2016-10-10] MEDS: ACETAMINOPHEN 325 MG TAB PO PRN ×3 (03:21→13:53)
[2016-10-10 04:00] VITALS: BP 131/86; PULSE 64; RESP 16; TEMP 96; O2SAT 94
[2016-10-10 08:00] VITALS: BP 106/77; PULSE 100; RESP 18; TEMP 96.5; O2SAT 97
[2016-10-10 08:09] LABS: AUTOMATED NEUTROPHIL # 3.3 TH/MM3 (1.8-7.7); BASOPHIL % 0.5 % (0.0-2.0); EOSINOPHIL % 0.2 % (0.0-4.0); HEMATOCRIT 38.9 % (35.0-46.0); HEMO FLAGS DIFF FINAL; LYMPH % 32.2 % (9.0-44.0); LYMPHOCYTE # 1.8 TH/MM3 (1.0-4.8); MEAN CELL VOLUME 88.7 FL (80.0-100.0); MEAN CORPUSCULAR HEMOGLOBIN 30.2 PG (27.0-34.0); MEAN CORPUSCULAR HGB CONC 34.1 % (32.0-36.0); MONO % 5.7 % (0.0-8.0); NEUT % 61.4 % (16.0-70.0); PLATELET COUNT 198 TH/MM3 (150-450); RED BLOOD COUNT 4.38 MIL/MM3 (4.00-5.30); RED CELL DISTRIBUTION WIDTH 13.6 % (11.6-17.2); WHITE BLOOD COUNT 5.4 TH/MM3 (4.0-11.0)
[2016-10-10 08:13] LABS: POTASSIUM 4.1 MEQ/L (3.5-5.1)
[2016-10-10 08:17] LABS: MAGNESIUM 2.1 MG/DL (1.5-2.5)
[2016-10-10] MEDS: FUROSEMIDE 40 MG TAB PO SCH (09:00)
[2016-10-10] MEDS: SODIUM CHLORIDE 0.9% FLUSH 10 ML FLUSH IV FLUSH SCH (09:00)
[2016-10-10] MEDS: SPIRONOLACTONE 50 MG TAB PO SCH (09:07)
[2016-10-10 09:08] VITALS: PULSE 85
[2016-10-10] MEDS: DULoxetine HCl DR 30 MG CAP PO SCH (09:08)
[2016-10-10] MEDS: GABAPENTIN 300 MG CAP PO SCH ×2 (09:08→13:53)
[2016-10-10] MEDS: POTASSIUM CHLORIDE 10 MEQ CONTROLLED RELEASE TAB PO SCH (09:08)
[2016-10-10] MEDS: PANTOPRAZOLE SOD 20 MG DELAYED RELEASE TAB PO SCH (09:08)
[2016-10-10 10:00] VITALS: O2SAT 95
[2016-10-10 12:00] VITALS: BP_SYST 148; BP_SYST 153; BP_SYST 164; BP_DIAS 106; BP_DIAS 118; BP_DIAS 94; PULSE 86; RESP 16; TEMP 96.7; O2SAT 97
[2016-10-10] MEDS ORDERED: SPIR25TA PO (14:14)
[2016-10-10] MEDS ORDERED: NEUR300C PO (14:14)
[2016-10-10] MEDS ORDERED: FURO20TA PO (14:14)
--- NOTE | 2016-10-10 14:20 | HHI.FF ---
Face to Face Verification Diagnosis: (1) Dizziness (2) Generalized weakness (3) Leg pain, bilateral (4) Polypharmacy (5) Sleep apnea (6) Fibromyalgia Physical Therapy Order: Evaluate and Treat Home Health Nursing Order: Nursing assessment with vital signs Instructions: Home health nurse once or twice weekly for medication management. Systems Support Specialist Order: To Evaluate: Support services I have seen patient Shirley Chen on 10/10/16. My clinical findings support the need for the requested home health care services because: Deconditioned w/ increased weakness I certify that my clinical findings support that this patient is homebound because: Unsafe to leave home unassisted Chau Hope MD Oct 10, 2016 14:20
--- NOTE | 2016-10-10 14:38 | HHI.PR ---
Subjective Remarks Patient says she feels well. Denies any chest pain or shortness of breath. Denies any lightheadedness or dizziness has been walking around today without any issues. She does say that she was diagnosed with sleep apnea sleep center in [place] this past year, and was told that she needed a CPAP, however refused. We discussed at length the signs, symptoms, risks of on treated sleep apnea. She will follow-up with primary care. Objective Vital Signs Date Time Temp Pulse Resp B/P Pulse Ox O2 Delivery O2 Flow Rate FiO2 10/10/16 12:00 96.7 86 16 148/94 97 153/106 164/118 10/10/16 10:00 95 21 10/10/16 09:08 85 10/10/16 08:00 96.5 100 18 106/77 97 10/10/16 04:00 96.0 64 16 131/86 94 10/10/16 00:00 96.6 79 20 126/85 96 10/09/16 20:00 82 10/09/16 20:00 97.7 81 20 119/71 95 10/09/16 17:44 18 10/09/16 16:00 98.0 94 20 130/83 95 I/O 10/09/16 10/09/16 10/09/16 10/10/16 10/10/16 10/10/16 07:00 15:00 23:00 07:00 15:00 23:00 Intake Total 240 ml 1050 ml Balance 240 ml 1050 ml Intake Oral 240 ml 1050 ml # Voids 1 5 1 2 # Bowel Movements 0 1 Result Diagram: 10/10/16 0730 10/10/16 0730 Objective Remarks GENERAL: obese. Sitting up in bed. Appears comfortable. Alert and oriented 3. Exam unchanged. SKIN: Warm and dry. HEAD: Normocephalic. EYES: No scleral icterus. No injection or drainage. NECK: Supple, trachea midline. No JVD. CARDIOVASCULAR: Regular rate and rhythm without murmurs, gallops, or rubs. RESPIRATORY: Breath sounds equal bilaterally. No accessory muscle use. GASTROINTESTINAL: Abdomen soft, non-tender, nondistended. MUSCULOSKELETAL: No cyanosis, or edema. BACK: Nontender without obvious deformity. No CVA tenderness. A/P Assessment and Plan 56-year-old female with: //Abdominal pain: Bilateral lower quadrants, and dull ache in the past few days. Patient has had a couple black stool taking NSAIDs, but rectal exam was performed in the ED with evidence of brown stool and no evidence of blood. Hemoglobin is stable. No elevation in white blood cell count. CT of the abdomen and pelvis shows mild constipation. AST and ALT only minimally elevated. Lipase normal. Afebrile. -Obtain new abdominal x-ray today. -Fleets enema and dose of magnesium hydroxide ordered. Magnesium hydroxide as needed. -Zofran prn nausea -Avoid opiates. Avoid tramadol due to interaction with psych medications. Tylenol for pain. -= Constipation resolved. Continue to monitor. //Bilateral leg pain: Patient has neuropathy and she has had previous back surgeries. She has normal strength in both legs. -Continue gabapentin at lower dose //Presyncope: Started a couple of days ago. Admits to a few palpitations when lightheaded. Patient had multiple episodes of hypotension, but now is hypertensive at 163/89 at noon although did not receive her BP medication this morning. -Monitor telemetry -Orthostatic vital signs -Echo still pending. -Carotid ultrasound with no significant stenosis. -IVF = Resolved. Avoid oversedation. Echocardiogram with normal ejection fraction./ /Chronic medical problems: Continue home medications. //Polypharmacy. Patient will be discharged home on decreased doses of sedating medications. Home health nurse for medication management. //Fibromyalgia //Previously diagnosed sleep apnea. Not on treatment. -Patient will follow up with primary care for treatment of sleep apnea. //DVT prevention: SCDs/TEDs. Discharge Planning Discharge home. Home health nurse for medication management. Avoid oversedation. Chau Hope MD Oct 10, 2016 14:38
--- NOTE | 2016-10-10 14:42 | HHI.DS ---
Discharge Summary Admission Date Oct 07, 2016 at 21:14 Discharge Date: Oct 10, 2016 Admitting Diagnosis dizziness; generalized weakness (1) Abdominal pain ICD Code: R10.9 Diagnosis: Principal (2) Leg pain, bilateral ICD Code: M79.604 Diagnosis: Principal (3) Pre-syncope ICD Code: R55 Diagnosis: Principal Procedures No invasive procedures performed. Brief History - From Admission 56-year-old female with history of asthma, chronic back pain and neuropathy, Bipolar disorder, HTN presents with complaint of "stomach" and back and leg pain as well as dizziness/lightheadedness. Patient admits to pain over bilateral lower quadrants, dull ache, constant. Denies any alleviating or exacerbating factors. Her last BM was the day before yesterday. She has had nausea for the past couple of days. She denies any chest pain or vomiting. She states she has had a couple of black stools and denies taking any Pepto- Bismol or iron supplementation but does state she has been taking a lot of Motrin and Aleve for the last week. She additionally states she was treated for UTI 10 days ago and only has mild dysuria at this time which is much improved from prior. She complains of dizziness for the last couple of days feeling like she is off balance and lightheaded upon standing. She admits to a few palpitations when lightheaded. Admits to fatigue and shortness of breath. She uses an inhaler. Patient states she has pain down both legs in the front describing it as sharp and shooting, constant. She has chronic numbness and tingling as she has neuropathy. She denies anything making it better or worse. Denies any recent medication changes. Does not have a regular PCP. CBC/BMP: 10/10/16 0730 10/10/16 0730 Significant Findings Laboratory Tests Test 10/07/16 10/07/16 10/09/16 10/10/16 18:00 18:13 04:36 07:30 Estimat Glomerular Filtration 60 ML/MIN (>89) 87 ML/MIN (>89) Rate Aspartate Amino Transf 39 U/L (15-37) (AST/SGOT) Alanine Aminotransferase 71 U/L (10-53) (ALT/SGPT) Albumin 3.3 GM/DL 3.0 GM/DL 3.1 GM/DL (3.4-5.0) (3.4-5.0) (3.4-5.0) Troponin I LESS THAN 0.02 NG/ML (0.02-0.05) Sodium Level 146 MEQ/L (136-145) Chloride Level 109 MEQ/L (98-107) Calcium Level 8.3 MG/DL (8.5-10.1) Imaging Last Impressions Carotid Artery Ultrasound 10/08/16 0000 Signed Impressions: Service Date/Time: October 15:14 - CONCLUSION: No evidence of flow-limiting carotid stenosis. Farshad Herron MD Abdomen X-Ray 10/08/16 0000 Signed Impressions: Service Date/Time: October 15:01 - CONCLUSION: No dilated loops of small or large bowel. Dallas Joe MD Abdomen/Pelvis CT 10/07/16 1758 Signed Impressions: Service Date/Time: Friday, October 07, 2016 18:31 - CONCLUSION: 1. No acute findings. Specifically no renal calculi or evidence for obstructive uropathy. 2. Previous fusion lower lumbar spine. 3. Mild constipation. Parker Hidalgo MD Chest X-Ray 10/07/16 0000 Signed Impressions: Service Date/Time: Friday, October 07, 2016 21:03 - CONCLUSION: No acute disease. Parker Hidalgo MD Hospital Course Carotid ultrasound no significant stenosis. Echocardiogram with normal ejection fraction. Patient's lightheadedness improved on increased doses of sedating medications. Patient discharged home on decreased doses of sedating medications, as well as diuretics, with home health nurse for management of polypharmacy. She will follow-up with primary care doctor for treatment of sleep apnea, which is a very common cause of central sensitization syndrome/ fibromyalgia. 56-year-old female with: //Abdominal pain: Bilateral lower quadrants, and dull ache in the past few days. Patient has had a couple black stool taking NSAIDs, but rectal exam was performed in the ED with evidence of brown stool and no evidence of blood. Hemoglobin is stable. No elevation in white blood cell count. CT of the abdomen and pelvis shows mild constipation. AST and ALT only minimally elevated. Lipase normal. Afebrile. -Obtain new abdominal x-ray today. -Fleets enema and dose of magnesium hydroxide ordered. Magnesium hydroxide as needed. -Zofran prn nausea -Avoid opiates. Avoid tramadol due to interaction with psych medications. Tylenol for pain. -= Constipation resolved. Continue to monitor. //Bilateral leg pain: Patient has neuropathy and she has had previous back surgeries. She has normal strength in both legs. -Continue gabapentin at lower dose //Presyncope: Started a couple of days ago. Admits to a few palpitations when lightheaded. Patient had multiple episodes of hypotension, but now is hypertensive at 163/89 at noon although did not receive her BP medication this morning. -Monitor telemetry -Orthostatic vital signs -Echo still pending. -Carotid ultrasound with no significant stenosis. -IVF = Resolved. Avoid oversedation. Echocardiogram with normal ejection fraction./ /Chronic medical problems: Continue home medications. //Polypharmacy. Patient will be discharged home on decreased doses of sedating medications. Home health nurse for medication management. //Fibromyalgia //Previously diagnosed sleep apnea. Not on treatment. -Patient will follow up with primary care for treatment of sleep apnea. //DVT prevention: SCDs/TEDs. Discharge Planning Discharge home. Home health nurse for medication management. Avoid oversedation. Pt Condition on Discharge: Good Discharge Disposition: Disch w/ Home Health Serv Discharge Time: > 30 minutes Discharge Instructions DIET: Follow Instructions for: Heart Healthy Diet Activities you can perform: Regular-No Restrictions Follow up Referrals: PCP Follow-up - 1 Week New Medications: Furosemide (Furosemide) 20 Mg Tab 20 MG PO DAILY water pill #30 Ref 0 TAB Spironolactone (Spironolactone) 25 Mg Tab 25 MG PO DAILY water pill #30 Ref 0 TAB Gabapentin (Neurontin) 300 Mg Cap 600 MG PO TID Pain Management Days 30 CAP Continued Medications: Aripiprazole (Aripiprazole) 15 Mg Tab 15 MG PO HS #30 Ref [address] (Cymbalta DR) 30 Mg Capdr 30 MG PO DAILY #30 Ref [address] (Cymbalta DR) 60 Mg Capdr 60 MG PO DAILY #30 Ref 0 CAP Ipratropium-Albuterol Inh (Combivent Respimat Inh) 20-100 Long-Term/Act Aero 1 PUFF INH QID Asthma Management #1 Ref 0 INHALER Omeprazole (Omeprazole) 20 Mg Tab 20 MG PO DAILY #30 Ref 0 TAB Ondansetron Odt (Zofran Odt) 4 Mg Tab 4 MG SL Q6HR PRN Nausea/Vomiting #10 TAB Potassium Chloride ER (Potassium Chloride ER) 10 Meq Cap 10 MEQ PO DAILY Electrolyte Replacement #30 Ref 0 CAP Discontinued Medications: Furosemide (Furosemide) 40 Mg Tab 40 MG PO DAILY #30 Ref 0 TAB Gabapentin (Gabapentin) 800 Mg Tab 800 MG PO TID #90 Ref 0 TAB Ibuprofen (Ibuprofen) 800 Mg Tab 800 MG PO Q8H PRN Pain/Inflammation #60 Ref 0 TAB Methocarbamol (Methocarbamol) 500 Mg Tab 500 MG PO QID Muscle Spasm #120 Ref 0 TAB Spironolactone (Spironolactone) 50 Mg Tab 50 MG PO DAILY #30 Ref 0 TAB Tizanidine (Tizanidine) 4 Mg Cap 4 MG PO QID Muscle Spasm Ref 0 CAP Trazodone (Trazodone) 150 Mg Tab 150 MG PO HS Control Depression #30 Ref 0 TAB Chau Hope MD Oct 10, 2016 14:42
--- NOTE | 2016-10-14 09:04 | EC ---
Study Study Date:10/09/2016 STUDY CONCLUSIONS SUMMARY LEFT VENTRICLE: The cavity size was normal. Wall thickness was normal. Systolic function was normal. The estimated ejection fraction was in the range of 55% to 60%. Wall motion was normal; there were no regional wall motion abnormalities. If LV function is below 40, please consider prescribing an ACEI or ARB or document rationale for non-use. PROCEDURE DATA STUDY STATUS: Elective. Procedure: Transthoracic echocardiography. Image quality was poor. Scanning was performed from the parasternal, apical, and subcostal acoustic windows. Study completion: The patient tolerated the procedure well. Transthoracic echocardiography. M-mode, complete 2D, complete spectral Doppler, and color Doppler. Height: Height: 68in. Weight: Weight: 334.3lb. Body mass index: BMI: 50.9kg/m^2. Body surface area: BSA: 2.54m^2. Patient status: Inpatient. CARDIAC ANATOMY LEFT VENTRICLE: The cavity size was normal. Wall thickness was normal. Systolic function was normal. The estimated ejection fraction was in the range of 55% to 60%. Wall motion was normal; there were no regional wall motion abnormalities. AORTIC VALVE: Trileaflet; normal thickness leaflets. Doppler: Transvalvular velocity was within the normal range. There was no stenosis. No regurgitation. AORTA: Aortic root: The aortic root was normal in size. MITRAL VALVE: Structurally normal valve. Doppler: Transvalvular velocity was within the normal range. There was no evidence for stenosis. No regurgitation. Valve area by pressure half-time: 2.97cm^2. Indexed valve area by pressure half-time: 1.17cm^2/m^2. Peak gradient: 3mm Hg (D). LEFT ATRIUM: The atrium was normal in size. RIGHT VENTRICLE: The cavity size was normal. Wall thickness was normal. PULMONIC VALVE: Doppler: Transvalvular velocity was within the normal range. There was no evidence for stenosis. No regurgitation. TRICUSPID VALVE: Structurally normal valve. Doppler: Transvalvular velocity was within the normal range. Trace regurgitation. Peak gradient: 24mm Hg (D). PULMONARY ARTERY: The main pulmonary artery was normal-sized. Systolic pressure was within the normal range. RIGHT ATRIUM: The atrium was normal in size. PERICARDIUM: There was no pericardial effusion. SYSTEMIC VEINS: Inferior vena cava: The vessel was normal in size. Patient weight: 334.3lb _Ejection fraction:_ 65-75% _Fractional shortening:_ 32% up to 5Kg 5-11.5Kg 11.6-22.9Kg 23-45Kg 45-57Kg Aortic Root 7-13 <17 13-22 17-27 17-27 LA diam 6-13 <23 24-38 33-47 37-40 RVID 10-17 7-15 7-15 7-18 8-17 LVIDd 12-22 <32 24-38 33-47 37-40 LVPW 2-4 3-6 5-7 6-8 7-8 IVS 2-4 3-6 5-7 6-8 7-8 BASIC MEASUREMENTS ADULT NORMAL Left ventricle LV internal dimension, ED, chordal *36.5 mm 43-52 level, PLAX LV internal dimension, ES, chordal 25.5 mm 23-38 level, PLAX Fractional shortening, chordal level, 30 % >29 PLAX LV posterior wall thickness, ED 11.6 mm IVS/LVPW ratio, ED 1.02 <1.3 Ventricular septum Septal thickness, ED 11.8 mm Aortic valve Leaflet separation 22 mm 15-26 Left atrium Anterior-posterior dimension 38 mm Anterior-posterior dimension index 1.5 cm/m^2 <2.2 Right ventricle RV internal dimension, ED, PLAX 21.6 mm 19-38 BASIC MEASUREMENTS ADULT NORMAL Aortic valve Leaflet separation 22 mm 15-26 Aorta Root diameter, ED *42 mm 20-37 Left atrium Anterior-posterior dimension, ES 38 mm 19-40 Anterior-posterior dimension index, ES 1.5 cm/m^2 <2.2 LA/aortic root ratio 0.9 DOPPLER MEASUREMENTS ADULT NORMAL Main pulmonary artery Pressure, S 20 mm Hg =30 Aortic valve Peak velocity, S 147 cm/s Mitral valve Peak E-wave velocity 87.9 cm/s Peak A-wave velocity 78 cm/s Pressure half-time 74 ms Peak gradient, D 3 mm Hg Peak E/A ratio 1.1 Valve area, pressure half-time 2.97 cm^2 Valve area index, pressure half-time 1.17 cm^2/m^2 Tricuspid valve Peak gradient, D 24 mm Hg Maximal inflow velocity 244 cm/s Regurgitant peak velocity 200 cm/s Peak RV-RA gradient, S 16 mm Hg Maximal regurgitant velocity 200 cm/s Systemic veins Estimated CVP 10 mm Hg Right ventricle RV pressure, S 26 mm Hg <30 Pulmonic valve Peak velocity, S 118 cm/s LEGEND: Mean values are shown as u=mean value. Asterisk (*) das values outside specified normal range. Prepared and signed by Russell Sharma [id number]
[2016-11-06] MEDS ORDERED: TIZA4CAP3 PO (14:27)
[2016-11-06] MEDS ORDERED: IBUP-232 PO (14:27)
[2016-11-06] MEDS ORDERED: TRAZ150T75 PO (14:27)
[2016-11-06] MEDS ORDERED: FLUT50SP EACH NARE (14:27)
[2016-11-06] MEDS ORDERED: [UNRECOGNIZED DRUG - OTHER] (15:32)
[2016-11-11] MEDS ORDERED: SPIR25TA PO (12:29)
[2016-11-11] MEDS ORDERED: NEUR300C PO (12:29)
[2016-11-11] MEDS ORDERED: FURO20TA PO (12:29)
[2016-11-17] MEDS ORDERED: OMEP20TA PO (12:39)
[2016-11-17] MEDS ORDERED: IBUP-232 PO (12:39)
[2016-11-24] MEDS ORDERED: IBUP-232 PO (09:51)
[2016-12-11] MEDS ORDERED: OXYC-395 PO (14:21)
[2016-12-14] MEDS ORDERED: POTA10CA PO (10:44)
== END 2016-10-10 15:24 | disposition home or self-care (01) ==
LOC: PHED 17:32 → PHEDA 21:14 → PH3A 22:59
PROVIDERS: ADMIT Internal Medicine; ATTEND Internal Medicine
DX: K59.00 Constipation, unspecified (principal); R55 Syncope and collapse; J45.909 Unspecified asthma, uncomplicated; I10 Essential (primary) hypertension; M79.7 Fibromyalgia; M79.605 Pain in left leg; M79.604 Pain in right leg; G62.9 Polyneuropathy, unspecified; M54.9 Dorsalgia, unspecified; G89.29 Other chronic pain; F31.9 Bipolar disorder, unspecified; F17.210 Nicotine dependence, cigarettes, uncomplicated; M19.90 Unspecified osteoarthritis, unspecified site; E78.00 Pure hypercholesterolemia, unspecified; Z88.1 Allergy status to other antibiotic agents
CPT/HCPCS: 71010; 74000; 74176; 80053; 80069; 80307; 81001; 82550; 83690; 83735; 84484; 85018; 85025; 85379; 87641; 93005; 93306; 93880; 94664; 96361; 96374; 96375; 97163; 99285; G0378; G8987; G8988; J1885; J2405; J7030; J7613; 76937

== ENCOUNTER 2016-11-29 09:00 | Emergency (ER) | payer OTHER ==
[~2016-11-29] VITALS: Ht 172.7 cm; Wt 149.1 kg
[~2016-11-29 09:00] MED LIST: ARIP1TAB13 PO; CYMB60CA PO; FLUT50SP EACH NARE; FURO20TA PO; IBUP-232 PO; IPRAAER INH; NEUR300C PO; OMEP20TA PO; POTA10CA PO; SPIR25TA PO; TIZA4CAP3 PO; TRAZ150T75 PO; [UNRECOGNIZED DRUG - OTHER]
[2016-11-29 09:08] VITALS: BP 142/104; PULSE 105; RESP 16; TEMP 98.4; O2SAT 96
[2016-11-29] MEDS ORDERED: TRAZ50TA12 PO (09:17)
[2016-11-29] MEDS ORDERED: TYLETAB34 PO (09:20)
[2016-11-29] MEDS ORDERED: SILV1CRE20 TOPICAL (09:21)
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
[2016-12-11] MEDS ORDERED: OXYC-395 PO (14:21)
[2016-12-14] MEDS ORDERED: POTA10CA PO (10:44)
== END 2016-11-29 09:39 | disposition home or self-care (01) ==
LOC: PHEFT 09:00
DX: T24.211A Burn of second degree of right thigh, initial encounter (principal); X10.0XXA Contact with hot drinks, initial encounter; Y93.9 Activity, unspecified; Y92.9 Unspecified place or not applicable; Y99.9 Unspecified external cause status; Z72.0 Tobacco use; I10 Essential (primary) hypertension; B19.20 Unspecified viral hepatitis C without hepatic coma; E78.00 Pure hypercholesterolemia, unspecified; F32.9 Major depressive disorder, single episode, unspecified
CPT/HCPCS: 99284

== ENCOUNTER 2016-12-04 16:21 | Emergency (ER) | payer OTHER ==
[~2016-12-04] VITALS: Ht 172.7 cm; Wt 152.1 kg
[~2016-12-04 16:21] MED LIST changes: +SILV1CRE20 TOPICAL; -TRAZ150T75 PO; +TRAZ50TA12 PO; +TYLETAB34 PO; -[UNRECOGNIZED DRUG - OTHER]
[2016-12-04 16:25] VITALS: BP 130/93; PULSE 98; RESP 16; TEMP 97.8; O2SAT 96
[2016-12-04] MEDS ORDERED: oxyCODONE/ACETAMINOPHEN 10 MG/325 MG TAB PO ONE (16:45)
[2016-12-04] MEDS ORDERED: CEPHALEXIN MONOHYDRATE 500 MG CAP PO ONE (16:45)
[2016-12-04] MEDS ORDERED: PERC10TA27 PO (16:53)
[2016-12-04] MEDS ORDERED: CEPH-460 PO (16:53)
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
[2016-12-04] MEDS ORDERED: SILVER SULFADIAZINE 1% CR 50 GM JAR TOPICAL ONE (17:00)
[2016-12-11] MEDS ORDERED: OXYC-395 PO (14:21)
[2016-12-14] MEDS ORDERED: POTA10CA PO (10:44)
== END 2016-12-04 17:41 | disposition home or self-care (01) ==
LOC: PHED 16:21
DX: T24.202D Burn of second degree of unspecified site of left lower limb, except ankle and foot, subsequent encounter (principal); I10 Essential (primary) hypertension; E78.00 Pure hypercholesterolemia, unspecified; G47.30 Sleep apnea, unspecified; X10.0XXD Contact with hot drinks, subsequent encounter; Z72.0 Tobacco use; Z87.39 Personal history of other diseases of the musculoskeletal system and connective tissue; Z87.09 Personal history of other diseases of the respiratory system; Z86.59 Personal history of other mental and behavioral disorders; Z87.19 Personal history of other diseases of the digestive system; Z86.19 Personal history of other infectious and parasitic diseases
CPT/HCPCS: 16020

== ENCOUNTER 2016-12-10 17:04 | Emergency (ER) | payer OTHER ==
[~2016-12-10] VITALS: Ht 172.7 cm; Wt 154.0 kg
[~2016-12-10 17:04] MED LIST changes: +CEPH-460 PO; +PERC10TA27 PO
[2016-12-10 17:12] VITALS: BP 119/82; PULSE 96; RESP 16; TEMP 98.3; O2SAT 96
[2016-12-10] MEDS ORDERED: ACETAMINOPHEN/HYDROcodone 325 MG/5 MG TAB PO ONE (18:00)
--- NOTE | 2016-12-10 18:21 | PD ---
HPI Chief Complaint: Edema Time Seen by Provider: 17:58 Travel History International Travel<30 days: No Contact w/Intl Traveler<30days: No Traveled to known affect area: No History of Present Illness HPI 56-year-old female with history of previous DVT, asthma, hypertension, multiple medical issues, presents to the ER today because she states that she had fallen 3 days ago on both knees, and has noticed increased pain especially in the left knee and left calf area. She states that she is unable to flex and extend it secondary to pain. It is worse with walking. She has had increased swelling in the left leg as well. She is currently stating the pain is 9 out of 10. She denies any chest pain, shortness of breath, or other issues. She denies other injuries. Modifying Factors: None Associated Signs & Symptoms: Left leg pain and swelling after fall Risk Factors: Previous DVT PFSH Past Medical History Hx Anticoagulant Therapy: No Arthritis: Yes (knees, back) Asthma: Yes Autoimmune Disease: No Anxiety: No Depression: Yes Heart Rhythm Problems: No Cancer: No Cardiovascular Problems: Yes (HTN, DVT) High Cholesterol: Yes Chemotherapy: No Chest Pain: Yes (hx of CP but never went to hospital pt states) Congestive Heart Failure: No COPD: No Cerebrovascular Accident: No Diabetes: No Diminished Hearing: No Endocrine: No Gastrointestinal Disorders: Yes GERD: Yes Genitourinary: No Headaches: Yes Hepatitis: Yes (HEP C) Hiatal Hernia: Yes Hypertension: Yes Immune Disorder: No Kidney Stones: No Musculoskeletal: No Neurologic: No Psychiatric: Yes (bipolar, PSTD, depression) Reproductive: No Respiratory: Yes Migraines: No Radiation Therapy: No Renal Failure: No Seizures: No Sickle Cell Disease: No Sleep Apnea: Yes Thyroid Disease: No Ulcer: No Tetanus Vaccination: Unknown Influenza Vaccination: Yes ?: Not Past Surgical History Abdominal Surgery: Yes (appendectomy) AICD: No Appendectomy: Yes Arteriovenous Shunt: No Cardiac Surgery: No Ear Surgery: No Endocrine Surgery: No Eye Surgery: No Gynecologic Surgery: Yes (hysterectomy, ovary out, ) Hysterectomy: Yes (OOPHRECTOMY ONE) Insulin Pump: No Joint Replacement: No Oral Surgery: No Pacemaker: No Thoracic Surgery: No Other Surgery: Yes (BACK FUSION) Social History Alcohol Use: No Tobacco Use: Yes (5 CIGS PER DAY) Substance Use: No Allergies-Medications (Allergen,Severity, Reaction): Coded Allergies: Vancomycin (Verified Allergy, Intermediate, rash, 12/10/16) Reported Meds & Prescriptions Reported Meds & Active Scripts Active Percocet (Oxycodone-Acetaminophen) 10-325 mg Tab 1 Tab PO Q6H PRN Keflex (Cephalexin) 500 Mg Capsule 500 Mg PO Q6H 10 Days Silvadene Topical (Silver Sulfadiazine) 1 % Cream 1 Applic TOPICAL BID Tylenol-Codeine #3 (Acetaminophen-Codeine) 300-30 mg Tab 1 Tab PO Q6HR PRN Ibuprofen 600 Mg Tab 600 Mg PO DAILY PRN Omeprazole 20 Mg Tab 20 Mg PO DAILY Neurontin (Gabapentin) 300 Mg Cap 600 Mg PO TID Furosemide 20 Mg Tab 20 Mg PO DAILY Spironolactone 25 Mg Tab 25 Mg PO DAILY Reported Trazodone (Trazodone HCl) 50 Mg Tab 150 Mg PO HS Tizanidine (Tizanidine HCl) 4 Mg Cap 4 Mg PO QID Fluticasone Nasal [place] 50 Mcg/Act Naspr 50 Mcg EACH NARE BID 50 mcg/spray Aripiprazole 15 Mg Tab 15 Mg PO HS Combivent Respimat Inh (Ipratropium-Albuterol Inh) 20-100 [place]/Act [place]ero 1 Puff INH QID Potassium Chloride ER (Potassium Chloride) 10 Meq Cap 10 Meq PO DAILY Cymbalta DR (Duloxetine HCl) 60 Mg Capdr 60 Mg PO DAILY Review of Systems Except as stated in HPI: all other systems reviewed are Neg Physical Exam Narrative GENERAL: Well-developed obese middle age white female patient currently in mild distress. Awake and oriented 3. SKIN: Focused skin assessment warm/dry. HEAD: Atraumatic. Normocephalic. EYES: Pupils equal and round. No scleral icterus. No injection or drainage. ENT: No nasal bleeding or discharge. Mucous membranes pink and moist. NECK: Trachea midline. No JVD. CARDIOVASCULAR: Regular rate and rhythm. No murmur appreciated. RESPIRATORY: No accessory muscle use. Clear to auscultation. Breath sounds equal bilaterally. GASTROINTESTINAL: Abdomen soft, non-tender, nondistended. Hepatic and splenic margins not palpable. MUSCULOSKELETAL: No obvious deformities. No clubbing. No cyanosis. No edema. EXTREMITIES: No clubbing, cyanosis, or edema. There is tenderness on palpation of the left knee, without obvious knee effusion, decreased range of motion secondary to pain. Left calf tenderness. She also has a healing abrasion of the lateral left leg. No significant erythema at this point. NEUROLOGICAL: Awake and alert. No obvious cranial nerve deficits. Motor grossly within normal limits. Normal speech. PSYCHIATRIC: Appropriate mood and affect; insight and judgment normal. Data Data Last Documented VS Vital Signs Date Time Temp Pulse Resp B/P Pulse Ox O2 Delivery O2 Flow Rate FiO2 12/10/16 17:12 98.3 96 16 119/82 96 Orders Complete Blood Count With Diff (12/10/16 17:58) Comprehensive Metabolic Panel (12/10/16 17:58) Prothrombin Time / Inr (Pt) (12/10/16 17:58) Act Partial Throm Time (Ptt) (12/10/16 17:58) Us Leg Venous Doppler (12/10/16 17:58) Knee, Complete (4vws) (12/10/16 17:58) Acetamin-Hydrocod 325-5 Mg ([place] 5-325 (12/10/16 18:00) Labs Laboratory Tests Test 12/10/16 18:40 White Blood Count 5.9 TH/MM3 Red Blood Count 4.53 MIL/MM3 Hemoglobin 13.4 GM/DL Hematocrit 40.4 % Mean Corpuscular Volume 89.2 FL Mean Corpuscular Hemoglobin 29.6 PG Mean Corpuscular Hemoglobin 33.2 % Concent Red Cell Distribution Width 12.8 % Platelet Count 203 TH/MM3 Mean Platelet Volume 9.1 FL Neutrophils (%) (Auto) 58.8 % Lymphocytes (%) (Auto) 33.6 % Monocytes (%) (Auto) 6.4 % Eosinophils (%) (Auto) 0.5 % Basophils (%) (Auto) 0.7 % Neutrophils # (Auto) 3.5 TH/MM3 Lymphocytes # (Auto) 2.0 TH/MM3 Monocytes # (Auto) 0.4 TH/MM3 Eosinophils # (Auto) 0.0 TH/MM3 Basophils # (Auto) 0.0 TH/MM3 CBC Comment DIFF FINAL Differential Comment MDM Medical Decision Making Medical Screen Exam Complete: Yes Emergency Medical Condition: Yes Medical Record Reviewed: Yes Differential Diagnosis Left leg/knee swelling and painknee contusion versus acute fractures versus DVT Narrative Course Ultrasound and x-ray of the left knee was ordered for the patient. Physician Communication Physician Communication Case is signed out to Dr. Wang at 7 PM pending ultrasound and x-ray. Disposition depending on workup. Diagnosis Primary Impression: Pain and swelling of left lower leg Condition: Stable Bianca Giron MD Dec 10, 2016 18:21
[2016-12-10 18:57] LABS: AUTOMATED NEUTROPHIL # 3.5 TH/MM3 (1.8-7.7); BASOPHIL % 0.7 % (0.0-2.0); EOSINOPHIL % 0.5 % (0.0-4.0); HEMATOCRIT 40.4 % (35.0-46.0); HEMO FLAGS DIFF FINAL; LYMPH % 33.6 % (9.0-44.0); MEAN CELL VOLUME 89.2 FL (80.0-100.0); MEAN CORPUSCULAR HEMOGLOBIN 29.6 PG (27.0-34.0); MEAN CORPUSCULAR HGB CONC 33.2 % (32.0-36.0); MONO % 6.4 % (0.0-8.0); NEUT % 58.8 % (16.0-70.0); PLATELET COUNT 203 TH/MM3 (150-450); RED BLOOD COUNT 4.53 MIL/MM3 (4.00-5.30); RED CELL DISTRIBUTION WIDTH 12.8 % (11.6-17.2); WHITE BLOOD COUNT 5.9 TH/MM3 (4.0-11.0)
[2016-12-10 19:08] LABS: CHLORIDE 107 MEQ/L (98-107); POTASSIUM 3.9 MEQ/L (3.5-5.1); SODIUM (NA) 142 MEQ/L (136-145)
[2016-12-10 19:11] LABS: ANION GAP 6 MEQ/L (5-15); BICARBONATE 29.5 MEQ/L (21.0-32.0); BLOOD UREA NITROGEN 11 MG/DL (7-18)
[2016-12-10 19:13] LABS: APTT (PATIENT) 26.6 SEC (24.3-30.1); INTERNATIONAL NORMALIZED RATIO 0.9 RATIO
[2016-12-10 19:14] LABS: ALT (GPT) 66 U/L (10-53); AST (GOT) 46 U/L (15-37); GLOMERULAR FILTRATION RATE 79 ML/MIN (>89)
[2016-12-10 19:16] LABS: TOTAL BILIRUBIN ADULT 0.2 MG/DL (0.2-1.0)
[2016-12-10 19:17] LABS: ALKALINE PHOSPHATASE 95 U/L (45-117)
--- NOTE | 2016-12-10 19:32 | RADHPO ---
EXAM DATE/TIME: 12/10/2016 18:54 [facility] COMPARISON: No previous studies available for comparison. INDICATIONS : Patient fell two days ago on her knees. MEDICAL HISTORY : Hypercholesterolemia. Hypertension. Hepatitis C. Syncope. Asthma. Arthritis. SURGICAL HISTORY : Appendectomy. Hysterectomy. Oophorectomy. Orthopedic surgery, right hand and ENCOUNTER: Initial ACUITY: 2 days PAIN SCORE: 10/10 LOCATION: Left Lateral Side of leg. FINDINGS: Examination real severe degenerative arthritic change with severe medial compartment and patellofemor al compartment joint space narrowing and prominent tricompartment osteophyte formation. There is no e vidence of fracture or destructive change. There is some calcific density overlying the suprapatellar bursa region. CONCLUSION: Severe degenerative changes. No evidence of acute bony process Farshad Herron MD on December 10, 2016 at 19:27 Board Certified Radiologist. This report was verified electronically.
[2016-12-10 19:44] VITALS: BP 115/72; PULSE 75; RESP 18; O2SAT 95
--- NOTE | 2016-12-10 19:51 | RADHPO ---
EXAM DATE/TIME: 12/10/2016 19:19 [facility] COMPARISON: No previous studies available for comparison. INDICATIONS : Left leg redness and swelling. MEDICAL HISTORY : Hypercholesterolemia. Hypertension. Hepatitis C. Arthritis. Asthma. Syncope. SURGICAL HISTORY : Appendectomy. Hysterectomy. Oophorectomy. Orthopedic surgery, right hand and bilateral tib/fib. Spi nal surgery. ENCOUNTER: Initial ACUITY: 3 days PAIN SCORE: 9/10 LOCATION: Left leg. TECHNIQUE: Venous ultrasound of the leg was performed from the inguinal ligament to the proximal calf. Real-yosi e, color Doppler and spectral tracing, compression and augmentation techniques were used. FINDINGS: There is normal compressibility of the deep venous system from the inguinal region to the proximal ca lf. No echogenic clot is seen in the lumen of the common femoral, femoral, popliteal, and posterior tibial veins. There is a normal response of the venous system to proximal and distal augmentation an d respiration. CONCLUSION: Normal examination. Farshad Herron MD on December 10, 2016 at 19:48 Board Certified Radiologist. This report was verified electronically.
[2016-12-10] MEDS ORDERED: HYDR-3533 PO (20:23)
--- NOTE | 2016-12-10 20:24 | PD ---
Physical Exam Narrative Patient signed out to me by Dr. Giron to follow up imaging and disposition. Please see her documentation for complete details. Briefly, patient is a 56-year-old female who comes in complaining of left knee pain. She did have a fall 3 days ago, and has had pain since then. She also reports some swelling to her left knee. Exam shows a burn to her left leg, which she says is 10 days old and improving. She has some slight swelling to the knee and pain with movement of her knee. Data Data Last Documented VS Vital Signs Date Time Temp Pulse Resp B/P Pulse Ox O2 Delivery O2 Flow Rate FiO2 12/10/16 19:47 Room Air 12/10/16 19:44 75 18 115/72 95 12/10/16 17:12 98.3 Orders Complete Blood Count With Diff (12/10/16 17:58) Comprehensive Metabolic Panel (12/10/16 17:58) Prothrombin Time / Inr (Pt) (12/10/16 17:58) Act Partial Throm Time (Ptt) (12/10/16 17:58) Us Leg Venous Doppler (12/10/16 17:58) Knee, Complete (4vws) (12/10/16 17:58) Acetamin-Hydrocod 325-5 Mg ([place] 5-325 (12/10/16 18:00) Labs Laboratory Tests Test 12/10/16 18:40 White Blood Count 5.9 TH/MM3 Red Blood Count 4.53 MIL/MM3 Hemoglobin 13.4 GM/DL Hematocrit 40.4 % Mean Corpuscular Volume 89.2 FL Mean Corpuscular Hemoglobin 29.6 PG Mean Corpuscular Hemoglobin 33.2 % Concent Red Cell Distribution Width 12.8 % Platelet Count 203 TH/MM3 Mean Platelet Volume 9.1 FL Neutrophils (%) (Auto) 58.8 % Lymphocytes (%) (Auto) 33.6 % Monocytes (%) (Auto) 6.4 % Eosinophils (%) (Auto) 0.5 % Basophils (%) (Auto) 0.7 % Neutrophils # (Auto) 3.5 TH/MM3 Lymphocytes # (Auto) 2.0 TH/MM3 Monocytes # (Auto) 0.4 TH/MM3 Eosinophils # (Auto) 0.0 TH/MM3 Basophils # (Auto) 0.0 TH/MM3 CBC Comment DIFF FINAL Differential Comment Prothrombin Time 10.0 SEC Prothromb Time International 0.9 RATIO Ratio Activated Partial 26.6 SEC Thromboplast Time Sodium Level 142 MEQ/L Potassium Level 3.9 MEQ/L Chloride Level 107 MEQ/L Carbon Dioxide Level 29.5 MEQ/L Anion Gap 6 MEQ/L Blood Urea Nitrogen 11 MG/DL Creatinine 0.76 MG/DL Estimat Glomerular Filtration 79 ML/MIN Rate Random Glucose 116 MG/DL Calcium Level 8.4 MG/DL Total Bilirubin 0.2 MG/DL Aspartate Amino Transf 46 U/L (AST/SGOT) Alanine Aminotransferase 66 U/L (ALT/SGPT) Alkaline Phosphatase 95 U/L Total Protein 6.8 GM/DL Albumin 3.0 GM/DL MDM Supervised Visit with MERRICK: No Narrative Course X-ray shows degenerative changes of the knee. Ultrasound shows no evidence of DVT. Last 24 hours Impressions Lower Extremity Ultrasound 12/10/161757 Signed Impressions: Service Date/Time: December 19:19 - CONCLUSION: Normal examination. Farshad Herron MD Knee X-Ray 12/10/161757 Signed Impressions: Service Date/Time: December 18:54 - CONCLUSION: Severe degenerative changes. No evidence of acute bony process Farshad Herron MD Patient was given Lortab for pain with some improvement. She'll be discharged with a description for a few Lortab. Advised follow-up with her doctor. Advised follow-up with orthopedics as necessary. Advised to stretch and move the knee often. Diagnosis Primary Impression: Knee pain, left Qualified Code: M25.562 - Acute pain of left knee Patient Instructions: General Instructions, Knee Pain (ED) Additional Instruction: Follow-up with her primary care doctor. He may need to follow-up with an orthopedic surgeon. Take pain medicine as needed. Return to the ED as needed for any worsening symptoms. Scripts Hydrocodone-Acetaminophen (Lortab)5-325 Mg Tab1 Tab PO Q6H PRN (PAIN) #10 TAB Ref 0 Prov:Soni Wang MD 12/10/16 Disposition: 01 DISCHARGE HOME Condition: Stable Soni Wang MD Dec 10, 2016 20:24
[2016-12-11] MEDS ORDERED: OXYC-395 PO (14:21)
[2016-12-14] MEDS ORDERED: POTA10CA PO (10:44)
== END 2016-12-10 21:05 | disposition home or self-care (01) ==
LOC: PHED 17:04
DX: M79.605 Pain in left leg (principal); M79.89 Other specified soft tissue disorders; W19.XXXA Unspecified fall, initial encounter; I10 Essential (primary) hypertension; Z72.0 Tobacco use
CPT/HCPCS: 73564; 80053; 85025; 85610; 85730; 93971

== ENCOUNTER 2016-12-28 14:59 | Inpatient (IN) | payer OTHER ==
[~2016-12-28] VITALS: Ht 172.7 cm; Wt 150.3 kg
[~2016-12-28 14:59] MED LIST changes: -CEPH-460 PO; +OXYC-395 PO; -PERC10TA27 PO; -TYLETAB34 PO
[2016-12-28 15:56] VITALS: BP 110/55; PULSE 85; RESP 18; TEMP 97.8; O2SAT 95
--- NOTE | 2016-12-28 16:26 | PD ---
HPI Chief Complaint: Suicide Ideation/Attempt Time Seen by Provider: 16:25 Travel History International Travel<30 days: No Contact w/Intl Traveler<30days: No Traveled to known affect area: No History of Present Illness HPI 56-year-old female with history of bipolar presents to the ED under Dob[place] act for making suicidal threats. On presentation the patient endorses suicidality. She states that she plans to overdose. She denies attempted overdose today. She states that she is in so much chronic knee and back pain that she wants to end her life. She states that she went to the pain management doctor today and was denied prescriptions but offered intra-articular injections. She states that the injections were unable to be performed today secondary to an insurance issue. She endorses previous psychiatric hospitalization and previous suicide attempt. She denies other somatic complaints. PFSH Past Medical History Hx Anticoagulant Therapy: No Arthritis: Yes (knees, back) Asthma: Yes Autoimmune Disease: No Anxiety: No Depression: Yes Heart Rhythm Problems: No Cancer: No Cardiovascular Problems: Yes (HTN, DVT) High Cholesterol: Yes Chemotherapy: No Chest Pain: Yes (hx of CP but never went to hospital pt states) Congestive Heart Failure: No COPD: No Cerebrovascular Accident: No Diabetes: No Diminished Hearing: No Endocrine: No Gastrointestinal Disorders: Yes GERD: Yes Genitourinary: No Headaches: Yes Hepatitis: Yes (HEP C) Hiatal Hernia: Yes Hypertension: Yes Immune Disorder: No Kidney Stones: No Musculoskeletal: No Neurologic: No Psychiatric: Yes (bipolar, PSTD, depression) Reproductive: No Respiratory: Yes (asthma) Migraines: No Radiation Therapy: No Renal Failure: No Seizures: No Sickle Cell Disease: No Sleep Apnea: Yes Thyroid Disease: No Ulcer: No Tetanus Vaccination: Unknown ?: Not Past Surgical History Abdominal Surgery: Yes (appendectomy) AICD: No Appendectomy: Yes Arteriovenous Shunt: No Cardiac Surgery: No Ear Surgery: No Endocrine Surgery: No Eye Surgery: No Gynecologic Surgery: Yes (hysterectomy, ovary out, ) Hysterectomy: Yes Insulin Pump: No Joint Replacement: No Neurologic Surgery: No Oral Surgery: No Pacemaker: No Thoracic Surgery: No Other Surgery: Yes (BACK FUSION) Social History Alcohol Use: No Tobacco Use: Yes (5 CIGS PER DAY) Substance Use: No Allergies-Medications (Allergen,Severity, Reaction): Coded Allergies: Vancomycin (Verified Allergy, Intermediate, rash, 12/10/16) Reported Meds & Prescriptions Reported Meds & Active Scripts Active Potassium Chloride ER (Potassium Chloride) 10 Meq Cap 10 Meq PO DAILY Oxycodone (Oxycodone HCl) 10 Mg Tab 10 Mg PO Q8HR Silvadene Topical (Silver Sulfadiazine) 1 % Cream 1 Applic TOPICAL BID Ibuprofen 600 Mg Tab 600 Mg PO DAILY PRN Omeprazole 20 Mg Tab 20 Mg PO DAILY Neurontin (Gabapentin) 300 Mg Cap 600 Mg PO TID Furosemide 20 Mg Tab 20 Mg PO DAILY Spironolactone 25 Mg Tab 25 Mg PO DAILY Reported Trazodone (Trazodone HCl) 50 Mg Tab 150 Mg PO HS Tizanidine (Tizanidine HCl) 4 Mg Cap 4 Mg PO QID Fluticasone Nasal [place] 50 Mcg/Act Naspr 50 Mcg EACH NARE BID 50 mcg/spray Aripiprazole 15 Mg Tab 15 Mg PO HS Combivent Respimat Inh (Ipratropium-Albuterol Inh) 20-100 Nursing Home/Act Aero 1 Puff INH QID Cymbalta DR (Duloxetine HCl) 60 Mg Capdr 60 Mg PO DAILY Review of Systems Except as stated in HPI: all other systems reviewed are Neg Physical Exam Narrative GENERAL: Well-nourished, well-developed obese white female in no acute distress. SKIN: Focused skin assessment warm/dry. HEAD: Normocephalic. EYES: No scleral icterus. No injection or drainage. NECK: Supple, trachea midline. No JVD or lymphadenopathy. CARDIOVASCULAR: Regular rate and rhythm without murmurs, gallops, or rubs. RESPIRATORY: Breath sounds equal bilaterally. No accessory muscle use. GASTROINTESTINAL: Abdomen soft, non-tender, nondistended. MUSCULOSKELETAL: No cyanosis, or edema. Patient is a laboratory with a walker. Tender to palpation of the joint lines of the bilateral knees. Neurovascularly intact. BACK: No obvious deformity. Tender to palpation of the musculature in the midline of the back. No CVA tenderness. Data Data Last Documented VS Vital Signs Date Time Temp Pulse Resp B/P Pulse Ox O2 Delivery O2 Flow Rate FiO2 12/28/16 15:56 97.8 85 18 110/55 95 Orders Psych Screen (12/28/16 15:57) Drug Screen, Random Urine (12/28/16 15:57) Gabapentin (Neurontin) (12/28/16 17:00) Tizanidine Hcl (Zanaflex) (12/28/16 17:00) Oxycodone-Acetamin 7.5-325 Mg (Percocet (12/28/16 17:00) Diet Heart Healthy (12/28/16 Dinner) Labs Laboratory Tests Test 12/28/16 16:30 Urine Opiates Screen NEG Urine Barbiturates Screen NEG Urine Amphetamines Screen NEG Urine Benzodiazepines Screen NEG Urine Cocaine Screen POS Urine Cannabinoids Screen NEG MDM Medical Decision Making Medical Screen Exam Complete: Yes Emergency Medical Condition: Yes Differential Diagnosis Chronic pain versus Adjustment disorder versus anxiety versus bipolar versus depression versus dementia versus electrolyte disorder versus malingering versus mood disorder versus ODD versus psychosis versus PTSD versus schizophrenia versus schizoaffective disorder versus substance-induced mood disorder versus suicidal ideation versus other Narrative Course 56-year-old female with history of bipolar presents to the ED under Dob[place] act for making suicidal threats. On presentation the patient endorses suicidality. She states that she plans to overdose. She denies attempted overdose today. She states that she is in so much chronic knee and back pain that she wants to end her life. She states that she went to the pain management doctor today and was denied prescriptions but offered intra-articular injections. She states that the injections were unable to be performed today secondary to an insurance issue. Vitals reviewed. Physical exam reveals an obese white female in no acute distress. Patient's been here 3 or 4 times in the last few months. I spoke with Dr. Cedillo and she does not think that labs are needed. Tox screen positive for cocaine. The patient was administered her nightly dose of gabapentin and tizanidine. I also ordered 7.5 mg Percocet. States that she walked more than usual in an attempt to get her pain provider today. Patient is medically clear for psychiatric evaluation. Please see psych notes for disposition. Ofelia Medrano Dec 28, 2016 16:26
[2016-12-28 16:58] LABS: AMPHETAMINE, URINE NEG (NEG); BARBITURATES, URINE NEG (NEG); COCAINE, URINE POS (NEG)
[2016-12-28] MEDS ORDERED: GABAPENTIN 300 MG CAP PO ONE (17:00)
[2016-12-28] MEDS ORDERED: oxyCODONE/ACETAMINOPHEN 7.5 MG/325 MG TAB PO ONE (17:00)
[2016-12-28 19:34] VITALS: BP 119/78; PULSE 95; RESP 16; TEMP 97.7; O2SAT 94
[2016-12-28 22:00] VITALS: BP 114/74; PULSE 83; RESP 18; TEMP 97.2; O2SAT 94
[2016-12-29 02:00] VITALS: BP 116/62; PULSE 77; RESP 18; TEMP 97.3; O2SAT 94
[2016-12-29] MEDS ORDERED: ACETAMINOPHEN/HYDROcodone 325 MG/5 MG TAB PO ONE (03:45)
[2016-12-29 06:04] VITALS: BP 124/56; PULSE 72; RESP 18; TEMP 97.6; O2SAT 96
[2016-12-29] MEDS ORDERED: IBUPROFEN 600 MG TAB PO ONE (12:30)
[2016-12-29] MEDS ORDERED: MAGNESIUM HYDROXIDE SUSP 30 ML CUP PO PRN (12:30)
[2016-12-29] MEDS ORDERED: ACETAMINOPHEN 325 MG TAB PO PRN (12:30)
[2016-12-29] MEDS ORDERED: ALUMINUM/MAGNESIUM/SIMETH 30 ML CUP PO PRN (12:30)
--- NOTE | 2016-12-29 12:30 | PD ---
History of Present Illness Chief Complaint: Suicide Ideation/Attempt Time Seen by Provider: 11:45 Travel History International Travel<30 Days: No Contact w/Intl Traveler<30days: No Known affected area: No Legal Status Legal Status: Dobson Act Dobson Act Signed By: Tone Falk History of Present Illness: History of Present Illness HPI 56-year-old female with history of bipolar disorder, depressed who presents to the ED under Dobson act initiated by DEENA. The report alleges that the patient called her doctor's office and spoke with a nurse and told her because of all the pain that she was in she would rather be . She did not make any attempt at harming herself. Current toxicology is positive for cocaine. ED documentation is reviewed. She endorsed suicidality to ED provider with a plan to overdose on her medication due to the chronic and persistent pain that she is experiencing. She states that she went to the pain management doctor and was denied prescriptions but offered intra-articular injections. She states that the injections were unable to be performed today secondary to an insurance issue. She is seen in [facility]. Obese female who is in hospital gown. Decreased eye contact. Depressed and angry affect. Mood is depressed, irritable edge. Speech is clear. States " I am tired of being in pain. They put dogs to sleep who are experiencing less pain that I am". She is frustrated, hopeless and desperate to be able to gain some pain control. There is no psychosis. She does not contract for safety and cannot verbalize ability to maintain her safety if she were discharged.. PFSH Past Medical History Hx Anticoagulant Therapy: No Arthritis: Yes (knees, back) Asthma: Yes Autoimmune Disease: No Anxiety: No Depression: Yes Heart Rhythm Problems: No Cancer: No Cardiovascular Problems: Yes (HTN, DVT) High Cholesterol: Yes Chemotherapy: No Chest Pain: Yes (hx of CP but never went to hospital pt states) Congestive Heart Failure: No COPD: No Cerebrovascular Accident: No Diabetes: No Diminished Hearing: No Endocrine: No Gastrointestinal Disorders: Yes GERD: Yes Genitourinary: No Headaches: Yes Hepatitis: Yes (HEP C) Hiatal Hernia: Yes Hypertension: Yes Immune Disorder: No Kidney Stones: No Musculoskeletal: No Neurologic: No Psychiatric: Yes (bipolar, PSTD, depression) Reproductive: No Respiratory: Yes (asthma) Migraines: No Radiation Therapy: No Renal Failure: No Seizures: No Sickle Cell Disease: No Sleep Apnea: Yes Thyroid Disease: No Ulcer: No Tetanus Vaccination: Unknown ?: Not Past Surgical History Abdominal Surgery: Yes (appendectomy) AICD: No Appendectomy: Yes Arteriovenous Shunt: No Cardiac Surgery: No Ear Surgery: No Endocrine Surgery: No Eye Surgery: No Gynecologic Surgery: Yes (hysterectomy, ovary out, ) Hysterectomy: Yes Insulin Pump: No Joint Replacement: No Neurologic Surgery: No Oral Surgery: No Pacemaker: No Thoracic Surgery: No Other Surgery: Yes (BACK FUSION) Psychiatric History Psychiatric History Hx Psychiatric Treatment: HX: BIPOLAR DISORDER One prior attempt by overdose. History of Inpatient Treatment: Yes (Several years ago after overdose) Social History Single female. Lives with her sister. Hx Alcohol Use: No Hx Tobacco Use: Yes (5 CIGS PER DAY) Hx Substance Use: Yes Substance Use Type: Cocaine Hx of Substance Use Treatment: No Family Psychiatric History Negative Allergies-Medications (Allergen,Severity, Reaction): Coded Allergies: Vancomycin (Verified Allergy, Intermediate, rash, 12/10/16) Reported Meds & Prescriptions Reported Meds & Active Scripts Active Potassium Chloride ER (Potassium Chloride) 10 Meq Cap 10 Meq PO DAILY Ibuprofen 600 Mg Tab 600 Mg PO DAILY PRN Omeprazole 20 Mg Tab 20 Mg PO DAILY Neurontin (Gabapentin) 300 Mg Cap 600 Mg PO TID Furosemide 20 Mg Tab 20 Mg PO DAILY Spironolactone 25 Mg Tab 25 Mg PO DAILY Reported Trazodone (Trazodone HCl) 50 Mg Tab 150 Mg PO HS Tizanidine (Tizanidine HCl) 4 Mg Cap 4 Mg PO QID Fluticasone Nasal [place] 50 Mcg/Act Naspr 50 Mcg EACH NARE BID 50 mcg/spray Aripiprazole 15 Mg Tab 15 Mg PO HS Combivent Respimat Inh (Ipratropium-Albuterol Inh) 20-100 Intermediate/Act Aero 1 Puff INH QID Cymbalta DR (Duloxetine HCl) 60 Mg Capdr 60 Mg PO DAILY Review of Systems Except as stated in HPI: all other systems reviewed are Neg Musculoskeletal: COMPLAINS OF: Joint pain, Stiffness, Back pain, Neck pain Neurologic: COMPLAINS OF: Poor Balance Psychiatric: COMPLAINS OF: Mood changes, Depression, Suicidal Ideation Exam Alert: Yes [place]: Person (ox4) Mood: Depressed Affect: Restricted Speech: Clear, Logical Eye Contact: Indirect Memory Intact: Comment (No impairmetn) Hallucinations: Other (negative) Delusions: No Suicidal: Ideation (to overdose on he rpills) Homicidal: Ideation (negative) Insight/Judgement Fair. Poor MDM Medical Decision Making Medical Record Reviewed: Yes Assessment/Plan 56 year old female under a BA for having verbalized suicidal ideation in context of persistent pain and unable to obtain pain medication. Patient with one previous suicide attempt by overdose under similar circumstances. At this time the patient will be admitted to inpatient psychiatric unit for further observation, to maintain safety and adjust current medications. Orders Psych Screen (12/28/16 15:57) Drug Screen, Random Urine (12/28/16 15:57) Gabapentin (Neurontin) (12/28/16 17:00) Tizanidine Hcl (Zanaflex) (12/28/16 17:00) Oxycodone-Acetamin 7.5-325 Mg (Percocet (12/28/16 17:00) Diet Heart Healthy (12/28/16 Dinner) Acetamin-Hydrocod 325-5 Mg ([place] 5-325 (12/29/16 03:45) Diet Regular Basic (12/29/16 Breakfast) Diet Regular Basic (12/29/16 Lunch) Results Vital Signs Date Time Temp Pulse Resp B/P Pulse Ox O2 Delivery O2 Flow Rate FiO2 12/29/16 06:04 97.6 72 18 124/56 96 Room Air 12/29/16 02:00 97.3 77 18 116/62 94 Room Air 12/28/16 22:00 97.2 83 18 114/74 94 Room Air 12/28/16 19:34 97.7 95 16 119/78 94 Room Air 12/28/16 15:56 97.8 85 18 110/55 95 Laboratory Tests Test 12/28/16 16:30 Urine Opiates Screen NEG Urine Barbiturates Screen NEG Urine Amphetamines Screen NEG Urine Benzodiazepines Screen NEG Urine Cocaine Screen POS Urine Cannabinoids Screen NEG Diagnosis Primary Impression: Bipolar 1 disorder Additional Impression: Cocaine abuse Admitting Information Admitting Physician Requests: Admit Problem Qualifiers Marlin Garner [facility] Dec 29, 2016 12:30
[2016-12-29] MEDS: DULoxetine HCl DR 60 MG CAP PO SCH (12:45)
[2016-12-29 12:46] VITALS: BP 117/58; PULSE 82; RESP 18; O2SAT 95
[2016-12-29] MEDS: GABAPENTIN 300 MG CAP PO SCH ×2 (13:00→18:00)
[2016-12-29] MEDS ORDERED: NON-FORMULARY DRUG (Ipratropium-Albuterol Inh (Combivent Respimat Inh) 1 PUFF) INH SCH (13:00)
[2016-12-29] MEDS: TIOTROPIUM BROMIDE 18 MCG INH INH SCH (15:00)
[2016-12-29 16:40] VITALS: BP 137/99; PULSE 92; TEMP 98.6; O2SAT 98
--- NOTE | 2016-12-29 17:27 | PD.CONS ---
[facility] By Psychiatry team Reason for Consult Pain management - Breana hx of chronic back and knee pain. Primary Care Physician Unknown Diagnoses: History of Present Illness Written by Violetta Basurto, acting as scribe for Dr. Flores on 12/29/16 at 17: 03. Patient is a 56-year-old female with primary medical history of HTN, HLD, arthritis on both knees, GERD, hepatitis C untreated, neuropathy who came into the hospital after making suicidal threats. Patient states that she was in the emergency room about a week ago she burned her left leg from a model maker plaster. She has been dealing with chronic pain and was referred to pain management were in she states that "pain management wanted to do steered injections on my back and I know it doesn't work and doesn't help me." Patient states that one to her appointment for pain specialist she missed her ride and got another ride but upon reaching the office she was in severe pain that she mentioned she would rather than be in pain at all times. She is now admitted to inpatient psychiatry unit for further evaluation. Consulted for medical management. Patient seen and examined today. Verified her medical history. Denies SOB/ dyspnea. Denies chest pain, palpitations, headaches, dizziness. Denies fevers, chills, n/v/d. Denies dysuria. States she has been having chronic pain and arthritis in both knees but unable to get surgical intervention.When asked what works for her. She states "oxycodone." When discussed with patient that opiates work for acute pain but not chronic pain and that we should try other medications, patient got irritable and does not want to talk anymore. Review of Systems Except as stated in HPI: all other systems reviewed are Neg Past Family Social History Allergies: Coded Allergies: Vancomycin (Verified Allergy, Intermediate, rash, 12/10/16) Past Medical History HTN HLD Arthritis Asthma GERD Hepatitis C -untreated has a referral Depression Chronic pain Past Surgical History Hysterectomy Appendectomy Tonsillectomy Back fusion surgery 2 Right and left tib-fib ORIF Reported Medications Reported Meds & Active Scripts Active Potassium Chloride ER (Potassium Chloride) 10 Meq Cap 10 Meq PO DAILY Ibuprofen 600 Mg Tab 600 Mg PO DAILY PRN Omeprazole 20 Mg Tab 20 Mg PO DAILY Neurontin (Gabapentin) 300 Mg Cap 600 Mg PO TID Furosemide 20 Mg Tab 20 Mg PO DAILY Spironolactone 25 Mg Tab 25 Mg PO DAILY Reported Trazodone (Trazodone HCl) 50 Mg Tab 150 Mg PO HS Tizanidine (Tizanidine HCl) 4 Mg Cap 4 Mg PO QID Fluticasone Nasal [place] 50 Mcg/Act Naspr 50 Mcg EACH NARE BID 50 mcg/spray Aripiprazole 15 Mg Tab 15 Mg PO HS Combivent Respimat Inh (Ipratropium-Albuterol Inh) 20-100 Custodial/Act Aero [address]uff INH QID [address] (Duloxetine HCl) 60 Mg Capdr 60 Mg PO DAILY Active Ordered Medications Current Medications Medications (Trade) Dose Ordered Sig/Jorge Route Start Time Stop Time Status Last Admin (Tylenol) 650 mg Q4H PRN PO 12/29/16 12:30 (Milk Of Magnesia Liq) 30 ml DAILY PRN PO 12/29/16 12:30 (Mag-Al Plus Susp Liq) 30 ml Q6H PRN PO 12/29/16 12:30 (Abilify) 15 mg HS PO 12/29/16 21:00 (Cymbalta Dr) 60 mg DAILY PO 12/29/16 12:45 (Lasix) 20 mg DAILY PO 12/30/16 09:00 (Neurontin) 600 mg TID PO 12/29/16 13:00 (KCl) 10 meq DAILY PO 12/30/16 09:00 (Aldactone) 25 mg DAILY PO 12/30/16 09:00 (Desyrel) 150 mg HS PO 12/29/16 21:00 (Protonix) 20 mg DAILY PO 12/30/16 09:00 (Spiriva Inh) 18 mcg DAILY INH 12/29/16 15:00 12/29/16 15:00 (Proair Hfa Inh) 1 puff QID INH 12/29/16 18:00 Family History Denies any family medical history Social History Patient lives with her sister, on disability. Does not drive Rare alcohol use Smokes 5 cigarettes per day Denies illicit drug use - U tox positive for cocaine Physical Exam Vital Signs Vital Signs Date Time Temp Pulse Resp B/P Pulse Ox O2 Delivery O2 Flow Rate FiO2 12/29/16 16:40 98.6 92 137/99 98 12/29/16 12:46 82 18 117/58 95 Room Air 12/29/16 06:04 97.6 72 18 124/56 96 Room Air 12/29/16 02:00 97.3 77 18 116/62 94 Room Air 12/28/16 22:00 97.2 83 18 114/74 94 Room Air 12/28/16 19:34 97.7 95 16 119/78 94 Room Air Physical Exam GENERAL: This is an obese, well-developed patient, in no apparent distress. SKIN: No rashes, ecchymoses or lesions. Cool and dry. HEAD: Atraumatic. Normocephalic. No temporal or scalp tenderness. EYES: Pupils equal round and reactive. Extraocular motions intact. No scleral icterus. No injection or drainage. ENT: Nose without bleeding. Throat without erythema. Uvula midline. Airway patent. NECK: Supple, nontender, no meningeal signs. CARDIOVASCULAR: Regular rate and rhythm without murmurs, gallops, or rubs. RESPIRATORY: Diminished bases. No wheezes, rales, or rhonchi. GASTROINTESTINAL: Abdomen soft, non-tender, nondistended. Bowel sounds active 4. MUSCULOSKELETAL: Extremities without clubbing, cyanosis, or edema. No joint tenderness, effusion, or edema noted. No calf tenderness. Negative Homans sign bilaterally. NEUROLOGICAL: Awake and alert. Oriented to person, place, time. Motor and sensory grossly within normal limits. Normal speech. Laboratory Laboratory Tests Test 12/28/16 16:30 Urine Opiates Screen NEG Urine Barbiturates Screen NEG Urine Amphetamines Screen NEG Urine Benzodiazepines Screen NEG Urine Cocaine Screen POS Urine Cannabinoids Screen NEG Assessment and Plan Problem List: (1) Hepatitis C ICD Code: B19.20 Status: Acute (2) Chronic pain ICD Code: G89.29 Status: Chronic Assessment and Plan Patient is a 56-year-old female with primary medical history of HTN, HLD, arthritis on both knees, GERD, hepatitis C untreated, neuropathy who came into the hospital after making suicidal threats. Patient states that she was in the emergency room about a week ago she burned her left leg from a model maker plaster. She has been dealing with chronic pain and was referred to pain management were in she states that "pain management wanted to do steered injections on my back and I know it doesn't work and doesn't help me." Patient states that one to her appointment for pain specialist she missed her ride and got another ride but upon reaching the office she was in severe pain that she mentioned she would rather than be in pain at all times. She is now admitted to inpatient psychiatry unit for further evaluation. Consulted for medical management Depression, suicidal ideation - Managed by psychiatry team Chronic pain - Patient has pain seeking behaviors requesting for opiates and doesn't want to try any alternative regimen. - Has been seen by pain management prior and recommending steered injections - Patient's U tox positive for cocaine - Will continue with ibuprofen use, gabapentin, Cymbalta - PT to evaluate and treat HTN - Continue with Lasix 20 mg, spironolactone 25 mg daily - Monitor BP trend Tobacco use - Counseled. Willing to quit - Nicotine patch DVT prop ambulatory Thank you for this consultation. We will follow patient with you. Code Status Full code Discussed Condition With Patient, nursing This note was transcribed by bryant Basurto. I, Dr. Bebo Flores personally performed the history, physical exam, and medical decision making; and confirmed the accuracy of the information in the transcribed note. Authenticated by Dr. Bebo Flores on 12/29/16 at 17:03. Problem Qualifiers (1) Chronic pain: Qualified Code: G89.4 - Chronic pain syndrome Violetta Carolina Dec 29, 2016 17:27 Bebo Flores DO Dec 29, 2016 17:44
[2016-12-29] MEDS ORDERED: IBUPROFEN 600 MG TAB PO PRN (17:45)
[2016-12-29] MEDS: ALBUTEROL SULFATE 90 MCG/ACT HFA 8 GM INHALER INH SCH ×2 (17:59→20:25)
[2016-12-29] MEDS ORDERED: ARIPiprazole 15 MG TAB PO SCH (21:00)
[2016-12-29] MEDS ORDERED: traZODone HCL 50 MG TAB PO SCH (21:00)
[2016-12-30 05:54] VITALS: BP 101/56; PULSE 72; RESP 18; TEMP 97.4; O2SAT 96
[2016-12-30] MEDS: TIOTROPIUM BROMIDE 18 MCG INH INH SCH (09:00)
[2016-12-30] MEDS: ALBUTEROL SULFATE 90 MCG/ACT HFA 8 GM INHALER INH SCH (09:00)
[2016-12-30] MEDS ORDERED: PANTOPRAZOLE SOD 20 MG DELAYED RELEASE TAB PO SCH (09:00)
[2016-12-30] MEDS ORDERED: FUROSEMIDE 20 MG TAB PO SCH (09:00)
[2016-12-30] MEDS ORDERED: SPIRONOLACTONE 25 MG TAB PO SCH (09:00)
[2016-12-30] MEDS ORDERED: POTASSIUM CHLORIDE 10 MEQ CAP PO SCH (09:00)
[2016-12-30] MEDS: DULoxetine HCl DR 60 MG CAP PO SCH (09:02)
[2016-12-30] MEDS: GABAPENTIN 300 MG CAP PO SCH (09:02)
[2016-12-30 09:19] LABS: ANION GAP 7 MEQ/L (5-15); BICARBONATE 29.8 MEQ/L (21.0-32.0); BLOOD UREA NITROGEN 14 MG/DL (7-18); CHLORIDE 103 MEQ/L (98-107); GLOMERULAR FILTRATION RATE 77 ML/MIN (>89); SODIUM (NA) 140 MEQ/L (136-145)
[2016-12-30 09:47] LABS: HDL CHOLESTEROL 48.6 MG/DL (40.0-60.0); LDL CHOLESTEROL 96 MG/DL (0-99)
--- NOTE | 2016-12-30 09:47 | HHI.HP ---
Provisional Diagnosis Admission Date Dec 29, 2016 at 12:38 Tiger I. 1. Adjustment disorder with disturbance of emotions and conduct 2. Rule out substance use disorder Tiger II. 1. Some cluster B personality traits Tiger V. GAF is 56 presently Certification of Person's Competence To Provide Express and Informed Consent I have personally examined Shirley Chen , a person being served at [facility] on, Dec 30, 2016 09:47. Express and informed consent means consent voluntarily given in writing, by a competent person, after sufficient explanation and disclosure of the subject matter involved to enable the person to make a knowing and willful decision without any element of force, fraud, deceit, duress, or other form of constraint or coercion. This person is 18 years of age or older, is not now known to be incompetent to consent to treatment with a guardian advocate, and does not have a health care surrogate or proxy currently making medical treatment decisions. I have found this person to be one of the following: [x] Competent to provide express and informed consent, as defined above, for voluntary admission to this facility and is competent to provide express and informed consent for treatment. He/she has the consistent capacity to make well reasoned, willful, and knowing decisions concerning his or her medical or mental health treatment. The person fully and consistently understands the purpose of the admission for examination/placement and is fully capable of personally exercising all rights assured [place] Incompetent to provide express and informed consent to voluntary admission, and this is incompetent to provide express and informed consent to treatment. The person must be transferred to involuntary status and a petition for a guardian advocate filed with the Circuit Court. [] Refusing to provide express and informed consent to voluntary admission but is competent to provide express and informed consent for treatment. The person must be discharged or transferred to involuntary status. Form shall be completed within 24 hours of a person's arrival at the receiving facility and filed in the clinical record of each person: 1. Admitted on a voluntary basis 2. Permitted to provide express and informed consent to his/her own treatment 3. Allowed to transfer from involuntary to voluntary status 4. Prior to permitting a person to consent to his or her own treatment after having been previously found incompetent to consent to treatment. History of Present Illness Capacity: Has Capacity HPI Ms. Chen is a 56-year-old female with a reported history of bipolar disorder who presented under a Dobson act by law enforcement alleging that the patient called her pain management doctors office and said that she would rather be than live in her current degree of pain. Patient was evaluated by the psychiatric nurse practitioner in the ED who recommended admission to the inpatient psychiatric unit. Reviewing the electronic medical record, I see no prior psychiatric contact within our system. Patient seen and examined with counselor. Chart reviewed. Case discussed with nursing staff. On my examination today, the patient presents as faultfinding and cluster B personality traits are noted. She castigates her pain management doctor as her "so-called pain doctor" and deprecates the care she has received here. She says "I just got upset because I didn't have any pain meds." She admits to telling the search and rescue officer at her pain management doctors office that "I'd rather be than be in so much pain," but she insists that this was metaphorical and not literal in nature. She denies any suicidal or homicidal ideation, intent or plan on direct questioning and says that she wants to live for her sister as well as for her niece and nephew. She denies any issues with low mood. Denies any hopelessness, worthlessness or morbid guilt. Sleep and appetite are fair. No hypomanic or manic symptoms noted. She denies any audiovisual hallucinations, and I can elicit no delusional beliefs. The remainder of the psychiatric ROS is negative. The patient is requesting discharge from the inpatient psychiatric unit today. Patient complains of chronic pain but otherwise has no physical complaints. With the patient's permission, the counselor has obtained collateral from patient's [id number] to the effect that he has no safety concerns about the patient being discharged from the inpatient psychiatric unit today. He does note that the patient has a history of substance use issues, and the brother-in- law told the counselor that the patient became upset and acted out when the pain management doctor refused to give her a prescription for narcotics without further assessment. Past psychiatric history: The patient reports a prior diagnosis of bipolar disorder. She reports that she follows with nurse practitioner on [address] for psychiatric issues. She cannot remember the name. She says that she was admitted 5 years ago to the psychiatric unit for management of depression and has a history of overdose in the past, although this is reportedly remote. Family history: Patient reports that her younger brother hanged himself. No other reported family psychiatric history: Chemical dependency history: The patient adamantly denies any abuse of drugs or alcohol. Her urine toxicology was positive for cocaine on presentation here. Social history: The patient reports that she lives with her sister and sister's . She is single. She has grown children. She has an associates degree. She is disabled. She denies any history. She denies any legal history. She denies any access to guns or firearms. She is a Religious. Review of Systems Except as stated in HPI: all other systems reviewed are Neg Past Psych History Psychological trauma history Patient's younger brother hanged himself. No reported PTSD symptoms. Violence risk - others (6 mos) Lower imminent risk. Denies homicidal ideation. No known history of violence. Denies access to guns or firearms. Cluster B personality traits and substance use if this is an active issue constitute chronic but not acute or imminent risk factors. Violence risk - self (6 mos) Lower imminent risk. Denies suicidal ideation. Wants to live for her sister and niece/nephew. Remote history of overdose. No evidence of unstable mood, anxiety or psychotic disorder in this patient at this time. Future oriented. Cluster B personality traits and substance use if this is an active issue constitute chronic but not acute or imminent risk factors. Substance Abuse History Drugs/Alcohol past 12 months See above Past Family Social History Coded Allergies: Vancomycin (Verified Allergy, Intermediate, rash, 12/10/16) Past Medical History See electronic medical record Active Scripts Potassium Chloride ER 10 Meq Cap10 Meq PO DAILY #30 CAP Ref 6 Prov:Fabiana Valdivia MD 12/14/16 Ibuprofen 600 Mg [id number] Mg PO DAILY PRN (arthritis pain) #30 TAB Ref 3 Prov:Fabiana Valdivia MD 11/24/16 Omeprazole 20 Mg Tab20 Mg PO DAILY #30 TAB Ref 12 Prov:Fabiana Valdivia MD 11/17/16 Gabapentin (Neurontin)300 Mg [id number] Mg PO TID #90 CAP Ref 6 Prov:Fabiana Valdivia MD 11/11/16 Furosemide 20 Mg Tab20 Mg PO DAILY #30 TAB Ref 0 Prov:Fabiana Valdivia MD 11/11/16 Spironolactone 25 Mg Tab25 Mg PO DAILY #30 TAB Ref 0 Prov:Fabiana Valdivia MD 11/11/16 Reported Medications Trazodone 50 Mg [id number] Mg PO HS #30 TAB Ref 0 11/29/16 Tizanidine 4 Mg Cap4 Mg PO QID Ref 0 11/06/16 Fluticasone Nasal [place] 50 Mcg/Act Naspr50 Mcg EACH NARE BID #1 BOTTLE Ref 0 50 mcg/spray 11/06/16 Aripiprazole 15 Mg Tab15 Mg PO HS #30 TAB Ref 0 10/08/16 Ipratropium-Albuterol Inh (Combivent Respimat Inh)20-100 Detention/Act Aero1 Puff INH QID #1 INHALER Ref 0 10/07/[address] (Cymbalta DR)60 Mg Capdr60 Mg PO DAILY #30 CAP Ref 0 10/07/16 Discontinued Scripts Oxycodone 10 Mg Tab10 Mg PO Q8HR #10 TAB Ref 0 Prov:Fabiana Valdivia MD 12/11/16 Silver Sulfadiazine Topical (Silvadene Topical)1 % Cream1 Applic TOPICAL BID # 50 GM Ref 0 Prov:José Miguel Alvarado MD 11/29/16 Current Medications Medications (Trade) Dose Ordered Sig/Jorge Route Start Time Stop Time Status Last Admin (Tylenol) 650 mg Q4H PRN PO 12/29/16 12:30 (Milk Of Magnesia Liq) 30 ml DAILY PRN PO 12/29/16 12:30 (Mag-Al Plus Susp Liq) 30 ml Q6H PRN PO 12/29/16 12:30 (Abilify) 15 mg HS PO 12/29/16 21:00 12/29/16 20:24 (Cymbalta Dr) 60 mg DAILY PO 12/29/16 12:45 12/30/16 09:02 (Lasix) 20 mg DAILY PO 12/30/16 09:00 12/30/16 09:02 (Neurontin) 600 mg TID PO 12/29/16 13:00 12/30/16 09:02 (KCl) 10 meq DAILY PO 12/30/16 09:00 12/30/16 09:02 (Aldactone) 25 mg DAILY PO 6/28/17 09:00 12/30/16 09:02 (Desyrel) 150 mg HS PO 12/29/16 21:00 12/29/16 20:25 (Protonix) 20 mg DAILY PO 12/30/16 09:00 12/30/16 09:02 (Spiriva Inh) 18 mcg DAILY INH 12/29/16 15:00 12/29/16 15:00 (Proair Hfa Inh) 1 puff QID INH 12/29/16 18:00 12/29/16 17:59 (Motrin) 600 mg Q8HR PRN PO 12/29/16 17:45 Family History See above Social History See above Patient's Strengths (min. 2) Attending to basic needs. Verbally fluent. Physical Exam Physical examination completed by ED provider. On my examination today, the patient appears to be in no acute physical distress. No motor abnormalities noted. No signs of withdrawal noted. Laboratories and vital signs reviewed: Vital Signs Vital Signs Date Time Temp Pulse Resp B/P Pulse Ox O2 Delivery O2 Flow Rate FiO2 12/30/16 05:54 97.4 72 18 101/56 96 12/29/16 12:46 Room Air Lab Results Item Value Date Time Sodium Level 140 MEQ/L 12/30/16 0705 Potassium Level 4.0 MEQ/L 12/30/16 0705 Chloride Level 103 MEQ/L 12/30/16 0705 Carbon Dioxide Level 29.8 MEQ/L 12/30/16 0705 Anion Gap 7 MEQ/L 12/30/16 0705 Blood Urea Nitrogen 14 MG/DL 12/30/16 0705 Creatinine 0.78 MG/DL 12/30/16 0705 Vitamin B12 Level 555 PG/ML 12/30/16 0705 25-Hydroxy Vitamin D Total 26.6 ng/ML L 12/30/16 0705 Urine Cocaine Screen POS H 12/28/16 1630 Mental Status Examination Patient is in hospital gown. She is fairly well groomed and appears to be maintaining basic hygiene. She is awake and alert and oriented to person and hospital at least. No evidence of delirium. No abnormal motor movements noted. Speech is somewhat terse but otherwise within normal limits for rate, tone and volume. Language and fund of knowledge seemed average. Focus and concentration intact. Memory grossly intact on clinical exam. Mood is reportedly fair. Affect is somewhat dysphoric and faultfinding, but I suspect this may be characterological in nature. Thought process linear. No loosening of associations. No delusional material elicited. Denies audiovisual hallucinations. Denies suicidal or homicidal ideation, intent or plan. Insight and judgment are fair at best. Assessment & Plan Problem List: (1) Adjustment disorder with mixed disturbance of emotions and conduct ICD Code: F43.25 Assessment & Plan This is a 56-year-old female with psychiatric history as detailed above who is presently admitted to the inpatient psychiatric unit under a Dobson act. On my examination today, the patient presents as faultfinding with cluster B personality traits, but there is no evidence otherwise of unstable mood, anxiety or psychotic disorder in this patient at this time. She denies any suicidal or homicidal ideation, intent or plan on direct questioning. She appears to be attending to her basic needs. Counselor has obtained reassuring collateral from patient's [id number]. Synthesizing this information and weighing the acute, chronic, and protective factors, I plate glass grinder to a reasonable degree of medical certainty that the patient does not presently meet the Dobson act criteria. She may have some degree of substance use disorder, which she may be minimizing, and this in conjunction with her personality style may confer some degree of chronic risk but not acute or imminent risk for harm to self/others. I have strongly recommended that she remain on the unit voluntarily for observation, but she has declined. Given that she does not meet criteria for involuntary psychiatric hospitalization at this time and given that she is insisting on discharge from the inpatient psychiatric unit, I must arrange for her discharge today home in stable condition with psychiatric follow-up as arranged by counselor. She is to continue her current outpatient psychotropics as ordered on discharge. Patient is also to follow-up with primary care. I have recommended that the patient pursue chemical dependency evaluation and treatment if indicated. I have counseled patient regarding warning signs for need to return to the psychiatric emergency room as part of the general safety plan. The patient reports no need for prescriptions for medications, and I have provided patient with no prescriptions on discharge. This note serves also as my discharge summary. Request HC Surrog/Guard Advoc?: No Antwan Louis MD Dec 30, 2016 09:47
[2016-12-30 21:26] LABS: HEMOGLOBIN A1b 0.8 %; HEMOGLOBIN Ao 86.4 %; HEMOGLOBIN F 0.8 %; HEMOGLOBIN LA1C 1.9 %; HEMOGLOBIN P3 3.6 %
== END 2016-12-30 11:10 | disposition home or self-care (01) | DRG 882 ==
LOC: NEPD 14:59 → NEDA 12-29 12:38 → H260 12-29 14:08
PROVIDERS: ADMIT Psychiatry & Neurology Psychiatry; ATTEND Psychiatry & Neurology Psychiatry
DX: F43.25 Adjustment disorder with mixed disturbance of emotions and conduct (principal); R45.851 Suicidal ideations; Z68.43 Body mass index [BMI] 50.0-59.9, adult; F31.9 Bipolar disorder, unspecified; F14.10 Cocaine abuse, uncomplicated; E66.9 Obesity, unspecified; F41.9 Anxiety disorder, unspecified; I10 Essential (primary) hypertension; K21.9 Gastro-esophageal reflux disease without esophagitis; G89.4 Chronic pain syndrome; G47.30 Sleep apnea, unspecified; J45.909 Unspecified asthma, uncomplicated; F17.210 Nicotine dependence, cigarettes, uncomplicated; M54.9 Dorsalgia, unspecified; M17.0 Bilateral primary osteoarthritis of knee; E78.5 Hyperlipidemia, unspecified; B19.20 Unspecified viral hepatitis C without hepatic coma; Z86.718 Personal history of other venous thrombosis and embolism; Z91.5 Personal history of self-harm
CPT/HCPCS: 80048; 80061; 80307; 82306; 82607; 83036

== ENCOUNTER 2017-03-20 19:37 | Emergency (ER) | payer MEDICARE, OTHER ==
[~2017-03-20] VITALS: Ht 172.7 cm; Wt 157.5 kg
[~2017-03-20 19:37] MED LIST changes: +AUGM875T3 PO; -OXYC-395 PO; -SILV1CRE20 TOPICAL
[2017-03-20 19:53] VITALS: BP 134/76; PULSE 89; RESP 18; TEMP 98.6; O2SAT 93
--- NOTE | 2017-03-20 21:09 | PD ---
HPI Chief Complaint: Oral / Dental Pain or Problem Time Seen by Provider: 21:08 Travel History International Travel<30 days: No Contact w/Intl Traveler<30days: No Traveled to known affect area: No History of Present Illness HPI 56-year-old female presents the emergency Department with right upper dental pain which has been progressive over the last 4 days. Pain is localized to the #3 tooth. She has localized swelling outer gumline. No obvious drainage or drainable abscesses noted. She has no difficulty swallowing or sore throat. The pain extends into the right ear since yesterday. Patient feels that she may have had some fevers, but denies nausea vomiting or other constitutional symptoms. She is allergic to vancomycin. PFSH Past Medical History Hx Anticoagulant Therapy: No Arthritis: Yes (knees, back) Asthma: Yes Autoimmune Disease: No Anxiety: No Depression: Yes Heart Rhythm Problems: No Cancer: No Cardiovascular Problems: Yes (HTN, DVT) High Cholesterol: Yes Chemotherapy: No Chest Pain: Yes (hx of CP but never went to hospital pt states) Congestive Heart Failure: No COPD: No Cerebrovascular Accident: No Diabetes: No Diminished Hearing: No Endocrine: No Gastrointestinal Disorders: Yes GERD: Yes Genitourinary: No Headaches: Yes Hepatitis: Yes (HEP C) Hiatal Hernia: Yes Hypertension: Yes Immune Disorder: No Kidney Stones: No Musculoskeletal: No Neurologic: No Psychiatric: Yes (bipolar, PSTD, depression) Reproductive: No Respiratory: Yes (Asthma) Migraines: No Radiation Therapy: No Renal Failure: No Seizures: No Sickle Cell Disease: No Sleep Apnea: Yes Thyroid Disease: No Ulcer: No Tetanus Vaccination: > 5 Years ?: Not Past Surgical History Abdominal Surgery: Yes (appendectomy) AICD: No Appendectomy: Yes Arteriovenous Shunt: No Cardiac Surgery: No Ear Surgery: No Endocrine Surgery: No Eye Surgery: No Gynecologic Surgery: Yes (hysterectomy, ovary out, ) Hysterectomy: Yes Insulin Pump: No Joint Replacement: No Neurologic Surgery: No Oral Surgery: No Pacemaker: No Thoracic Surgery: No Other Surgery: Yes (BACK FUSION) Social History Alcohol Use: No Tobacco Use: Yes (5 CIGS PER DAY) Allergies-Medications (Allergen,Severity, Reaction): Coded Allergies: vancomycin (Unverified Allergy, Intermediate, rash, 03/20/17) Reported Meds & Prescriptions Reported Meds & Active Scripts Active Mapap Extra Strength (Acetaminophen) 500 Mg Tab 1,000 Mg PO Q6HR PRN Penicillin V Potassium 500 Mg Tab 500 Mg PO Q6H 10 Days Furosemide 20 Mg Tab 20 Mg PO DAILY Spironolactone 25 Mg Tab 25 Mg PO DAILY Ibuprofen 600 Mg Tab 600 Mg PO DAILY PRN Potassium Chloride ER (Potassium Chloride) 10 Meq Cap 10 Meq PO DAILY Omeprazole 20 Mg Tab 20 Mg PO DAILY Neurontin (Gabapentin) 300 Mg Cap 600 Mg PO TID Reported Trazodone (Trazodone HCl) 50 Mg Tab 150 Mg PO HS Tizanidine (Tizanidine HCl) 4 Mg Cap 4 Mg PO QID Fluticasone Nasal [place] 50 Mcg/Act Naspr 50 Mcg EACH NARE BID 50 mcg/spray Aripiprazole 15 Mg Tab 15 Mg PO HS Combivent Respimat Inh (Ipratropium-Albuterol Inh) 20-100 Fpc/Act Aero 1 Puff INH QID Cymbalta DR (Duloxetine HCl) 60 Mg Capdr 60 Mg PO DAILY Review of Systems Except as stated in HPI: all other systems reviewed are Neg General / Constitutional: Positive: Chills, No: Fever Eyes: No: Visual changes HENT: Positive: Dental Difficulties, Earache, No: Headaches, Vertigo, Lightheadedness, Sore Throat, Rhinitis, Rhinorrhea, Congestion, Nosebleed, Neck Stiffness, Neck Pain, Gingival Bleeding, Ear Discharge Cardiovascular: No: Chest Pain or Discomfort Respiratory: No: Shortness of Breath Gastrointestinal: No: Abdominal Pain Genitourinary: No: Dysuria Musculoskeletal: No: Pain Skin: No Rash Neurologic: No: Weakness Psychiatric: No: Depression Endocrine: No: Polydipsia Hematologic/Lymphatic: No: Easy Bruising Physical Exam Narrative GENERAL: Patient appears in mild to moderate distress. SKIN: Warm and dry. Mild pallor. Normal turgor. Mild diaphoresis. HEAD: Atraumatic. Normocephalic. Patient has swelling and tenderness along the right upper maxillary cheek consistent with dental abscess. EYES: Pupils equal and round. No scleral icterus. No injection or drainage. ENT: No nasal bleeding or discharge. Mucous membranes pink and moist. Patient has mild swelling to the right outer gumline but teeth actually appear to be in fairly good condition. Pharynx is clear. Airway is patent. No significant lymphadenopathy. TMs are clear bilaterally. NECK: Trachea midline. Supple nontender without significant lymphadenopathy. CARDIOVASCULAR: Regular rate and rhythm. RESPIRATORY: No accessory muscle use. Clear to auscultation. Breath sounds equal bilaterally. MUSCULOSKELETAL: Extremities without clubbing, cyanosis, or edema. No obvious deformities. NEUROLOGICAL: Awake and alert. No obvious cranial nerve deficits. Motor grossly within normal limits. Five out of 5 muscle strength in the arms and legs. Normal speech. PSYCHIATRIC: Appropriate mood and affect; insight and judgment normal. Data Data Last Documented VS Vital Signs Date Time Temp Pulse Resp B/P (MAP) Pulse Ox O2 Delivery O2 Flow Rate FiO2 03/20/17 19:53 98.6 89 18 134/76 (95) 93 Orders Orders Ketorolac Inj (Toradol Inj) (03/20/17 21:30) Penicillin V Potassium (Veetids) (03/20/17 21:30) [facility] Medical Decision Making Medical Screen Exam Complete: Yes Emergency Medical Condition: Yes Differential Diagnosis Dental caries. Dental abscess. Dental pain. Narrative Course Patient is medically stable at time of exam. Patient is given Toradol 60 mg IM 1. Patient is given her first dose of penicillin VK, 500 mg by mouth now. Patient is continued on penicillin V 500 mg 4 times a day #40. Patient is given acetaminophen 500 mg 2 tabs every 6 hours #60. Patient should follow-up with local dentist as soon as possible. Patient can return to the emergency Department with worsening symptoms as needed. Diagnosis Primary Impression: Dental abscess Referrals: Dentist call for appointment Patient Instructions: Dental Abscess (ED), General Instructions Additional Instructions: Patient is given Toradol 60 mg IM 1. Patient is given her first dose of penicillin VK, 500 mg by mouth now. Patient is continued on penicillin V 500 mg 4 times a day #40. Patient is given acetaminophen 500 mg 2 tabs every 6 hours #60. Patient should follow-up with local dentist as soon as possible. Patient can return to the emergency Department with worsening symptoms as needed. Med/Other Pt SpecificInfo: Prescription(s) given Scripts Acetaminophen (Mapap Extra Strength) 500 Mg Tab 1000 MG PO Q6HR Y for PAIN, #60 TAB 0 Refills Prov: Magdiel Rodríguez MD 03/20/17 Penicillin V Potassium (Penicillin V Potassium) 500 Mg Tab 500 MG PO Q6H for Infection for 10 Days, #40 TAB 0 Refills Prov: Magdiel Rodríguez MD 03/20/17 Disposition: 01 DISCHARGE HOME Condition: Luis Miguel Mosley Mar 20, 2017 21:08
[2017-03-20] MEDS ORDERED: MAPA500T13 PO (21:21)
[2017-03-20] MEDS ORDERED: PENI500T PO (21:21)
[2017-03-20] MEDS ORDERED: KETOROLAC TROMETHAMINE 60 MG/2 ML (IM) VIAL IM ONE (21:30)
[2017-03-20] MEDS ORDERED: PENICILLIN V POTASSIUM 500 MG TAB PO ONE (21:30)
[2017-04-06] MEDS ORDERED: IBUP-232 PO (15:33)
[2017-04-09] MEDS ORDERED: TIZA4CAP3 PO (13:11)
== END 2017-03-20 21:42 | disposition home or self-care (01) ==
LOC: PHED 19:37 → PHEFT 21:42
DX: K04.7 Periapical abscess without sinus (principal); B19.20 Unspecified viral hepatitis C without hepatic coma; E78.00 Pure hypercholesterolemia, unspecified; I10 Essential (primary) hypertension; J45.909 Unspecified asthma, uncomplicated; K21.9 Gastro-esophageal reflux disease without esophagitis
CPT/HCPCS: 96372; 99284; J1885

== ENCOUNTER 2017-04-29 14:59 | Emergency (ER) | payer MEDICARE, OTHER ==
[~2017-04-29 14:59] MED LIST changes: -AUGM875T3 PO; +MAPA500T13 PO; -OMEP20TA PO; +OMEP20TA93 PO; +PENI500T PO
[2017-04-29 15:03] VITALS: BP 137/64; PULSE 93; RESP 22; TEMP 98.9; O2SAT 94
[2017-04-29] MEDS ORDERED: OXYC-395 PO (15:18)
--- NOTE | 2017-04-29 15:29 | PD ---
HPI Chief Complaint: Respiratory Symptoms Time Seen by Provider: 15:14 Travel History International Travel<30 days: No Contact w/Intl Traveler<30days: No Traveled to known affect area: No History of Present Illness HPI This 56-year-old female is complaining of swelling of her legs and shortness of breath. She has a history of hypertension. She is on 20 mg of Lasix. She has had increasing swelling of her legs over the last week so she has increased her Lasix to 40 mg. She has no history of heart disease. She has occasional fluttering in the chest but has not had any chest pain. She does smoke 6-7 cigarettes a day. She has noted increasing dyspnea. He says she's had a 20 pound weight loss over the last few weeks. He has a history of chronic back pain and has pain in her knees. She takes oxycodone for this. She is also on Aldactone Cymbalta omeprazole Prilosec. She denies any chest pain. He has not had fever or chills. She does have frequency and dysuria and is concerned she might have a urinary tract infection PFSH Past Medical History Hx Anticoagulant Therapy: No Arthritis: Yes (knees, back) Asthma: Yes Autoimmune Disease: No Anxiety: No Depression: Yes Heart Rhythm Problems: No Cancer: No Cardiovascular Problems: Yes (HTN, DVT) High Cholesterol: Yes Chemotherapy: No Chest Pain: Yes (hx of CP but never went to hospital pt states) Congestive Heart Failure: No COPD: No Cerebrovascular Accident: No Diabetes: No Diminished Hearing: No Endocrine: No Gastrointestinal Disorders: Yes GERD: Yes Genitourinary: No Headaches: Yes Hepatitis: Yes (HEP C) Hiatal Hernia: Yes Hypertension: Yes Immune Disorder: No Kidney Stones: No Musculoskeletal: No Neurologic: No Psychiatric: Yes (bipolar, PSTD, depression) Reproductive: No Respiratory: Yes (Asthma) Migraines: No Radiation Therapy: No Renal Failure: No Seizures: No Sickle Cell Disease: No Sleep Apnea: Yes Thyroid Disease: No Ulcer: No Tetanus Vaccination: > 5 Years Influenza Vaccination: Yes ?: Not Past Surgical History Abdominal Surgery: Yes (appendectomy) AICD: No Appendectomy: Yes Arteriovenous Shunt: No Cardiac Surgery: No Ear Surgery: No Endocrine Surgery: No Eye Surgery: No Gynecologic Surgery: Yes (hysterectomy, ovary out, ) Hysterectomy: Yes Insulin Pump: No Joint Replacement: No Neurologic Surgery: No Oral Surgery: No Pacemaker: No Thoracic Surgery: No Other Surgery: Yes (BACK FUSION) Social History Alcohol Use: No Tobacco Use: Yes (07/08 PPD) Substance Use: No (DENIES) Allergies-Medications (Allergen,Severity, Reaction): Coded Allergies: vancomycin (Unverified Allergy, Intermediate, rash, 04/29/17) Reported Meds & Prescriptions Reported Meds & Active Scripts Active Tizanidine (Tizanidine HCl) 4 Mg Cap 4 Mg PO QID Ibuprofen 600 Mg Tab 600 Mg PO DAILY PRN Mapap Extra Strength (Acetaminophen) 500 Mg Tab 1,000 Mg PO Q6HR PRN Furosemide 20 Mg Tab 20 Mg PO DAILY Spironolactone 25 Mg Tab 25 Mg PO DAILY Potassium Chloride ER (Potassium Chloride) 10 Meq Cap 10 Meq PO DAILY Omeprazole 20 Mg Tab 20 Mg PO DAILY Neurontin (Gabapentin) 300 Mg Cap 600 Mg PO TID Reported Oxycodone (Oxycodone HCl) 10 Mg Tab 10 Mg PO Q6H PRN Trazodone (Trazodone HCl) 50 Mg Tab 150 Mg PO HS Fluticasone Nasal [place] 50 Mcg/Act Naspr 50 Mcg EACH NARE BID 50 mcg/spray Aripiprazole 15 Mg Tab 15 Mg PO HS Combivent Respimat Inh (Ipratropium-Albuterol Inh) 20-100 Custodial/Act Aero 1 Puff INH QID Cymbalta DR (Duloxetine HCl) 60 Mg Capdr 60 Mg PO DAILY Review of Systems General / Constitutional: No: Fever Eyes: No: Diploplia, Blurred Vision HENT: No: Headaches, Vertigo Cardiovascular: No: Chest Pain or Discomfort, Palpitations Respiratory: Positive: Shortness of Breath Gastrointestinal: No: Nausea, Vomiting Genitourinary: Positive: Frequency, No: Urgency Musculoskeletal: Positive: Myalgias, Pain, No: Arthralgias Skin: No Rash, No Itching Neurologic: No: Weakness, Dizziness Psychiatric: Positive: Depression Endocrine: No: Heat Intolerance, Cold Intolerance Hematologic/Lymphatic: No: Easy Bruising Physical Exam Narrative GENERAL: Well-developed female SKIN: Focused skin assessment warm/dry. HEAD: Atraumatic. Normocephalic. EYES: Pupils equal and round. No scleral icterus. No injection or drainage. ENT: No nasal bleeding or discharge. Mucous membranes pink and moist. NECK: Trachea midline. No JVD. CARDIOVASCULAR: Regular rate and rhythm. No murmur appreciated. RESPIRATORY: No accessory muscle use. Clear to auscultation. Breath sounds equal bilaterally. GASTROINTESTINAL: Abdomen soft, non-tender, nondistended. Hepatic and splenic margins not palpable. MUSCULOSKELETAL: No obvious deformities. No clubbing. No cyanosis. Bilateral pedal edema NEUROLOGICAL: Awake and alert. No obvious cranial nerve deficits. Motor grossly within normal limits. Normal speech. PSYCHIATRIC: Appropriate mood and affect; insight and judgment normal. Data Data Last Documented VS Vital Signs Date Time Temp Pulse Resp B/P (MAP) Pulse Ox O2 Delivery O2 Flow Rate FiO2 04/29/17 15:16 Room Air 04/29/17 15:03 98.9 93 22 137/64 (88) 94 Orders Orders Electrocardiogram (04/29/17 15:20) Complete Blood Count With Diff (04/29/17 15:20) Comprehensive Metabolic Panel (04/29/17 15:20) Troponin I (04/29/17 15:20) Urinalysis - C+S If Indicated (04/29/17 15:20) Magnesium (Mg) (04/29/17 15:20) Chest, Single Ap (04/29/17 15:20) B-Type Natriuretic Peptide (04/29/17 15:20) MDM Medical Decision Making Medical Screen Exam Complete: Yes Emergency Medical Condition: Yes Medical Record Reviewed: Yes Differential Diagnosis Differential includes pneumonia, CHF, COPD Narrative Course Lungs seemed fairly clear at this time. I will order x-ray and lab tests Liborio Echeverria MD Apr 29, 2017 15:29
[2017-04-29 15:37] VITALS: BP 90/53; PULSE 88; RESP 20; TEMP 98.4; O2SAT 93
[2017-04-29 16:07] LABS: AUTOMATED NEUTROPHIL # 3.4 TH/MM3 (1.8-7.7); BASOPHIL % 0.5 % (0.0-2.0); EOSINOPHIL % 0.2 % (0.0-4.0); HEMATOCRIT 36.1 % (35.0-46.0); HEMOGLOBIN 12.1 GM/DL (11.6-15.3); LYMPH % 29.8 % (9.0-44.0); LYMPHOCYTE # 1.5 TH/MM3 (1.0-4.8); MEAN CORPUSCULAR HEMOGLOBIN 29.3 PG (27.0-34.0); MEAN CORPUSCULAR HGB CONC 33.6 % (32.0-36.0); MEAN PLATELET VOLUME 9.3 FL (7.0-11.0); MONO % 6.1 % (0.0-8.0); MONOCYTE # 0.3 TH/MM3 (0-0.9); NEUT % 63.4 % (16.0-70.0); PLATELET COUNT 179 TH/MM3 (150-450); RED BLOOD COUNT 4.15 MIL/MM3 (4.00-5.30); RED CELL DISTRIBUTION WIDTH 13.3 % (11.6-17.2); WHITE BLOOD COUNT 5.2 TH/MM3 (4.0-11.0)
[2017-04-29 16:13] LABS: BILIRUBIN, URINE NEG (NEG); BLOOD, URINE NEG (NEG); GLUCOSE,URINE NEG (NEG); KETONE, URINE NEG (NEG); NITRITE,URINE NEG (NEG); URINE LEUKOCYTE ESTERASE NEG (NEG)
[2017-04-29 16:16] VITALS: BP 107/75; PULSE 88; RESP 20; TEMP 98.4; O2SAT 93
--- NOTE | 2017-04-29 16:16 | PD ---
Physical Exam Narrative Received sign out from previous provider to follow up with labs and CXR. 56yo F with c/o bilateral lower extremity swelling and worsening sob. Pt is already on lasix. Labs reviewed, no leukocytosis. BNP is normal at 67. Troponin is negative. UA negative. CXR showed pulmonary vascular engorgement concern for possible early interstitial pulmonary edema. Pt currently saturating at 94% on RA and well appearing. She told me she has history of right DVT and not on any anticoagulation. Pt does have bilateral calf pain although edema is more in feet and ankle. Will add bilateral US lower extremities and CT angio. Pt also with chronic pain and already takes 10mg of oxycodone for it. BP is on the lower end, will give toradol for pain. Pt reevaluated after toradol and said pain has improved. SOB has also improved. CT angio showed no PE. Pulmonary parenchyma is clear. Bilateral lower extremity US is negative. Pt is already taking lasix and increased her lasix from 20mg to 40mg. Pt is to follow up with PMD in 1-2 days. Return precautions given. Data Data Last Documented VS Vital Signs Date Time Temp Pulse Resp B/P (MAP) Pulse Ox O2 Delivery O2 Flow Rate FiO2 04/29/17 18:27 86 92/64 (73) 93 04/29/17 16:17 98.4 20 Room Air Orders Orders Electrocardiogram (04/29/17 15:20) Complete Blood Count With Diff (04/29/17 15:20) Comprehensive Metabolic Panel (04/29/17 15:20) Troponin I (04/29/17 15:20) Urinalysis - C+S If Indicated (04/29/17 15:20) Magnesium (Mg) (04/29/17 15:20) Chest, Single Ap (04/29/17 15:20) B-Type Natriuretic Peptide (04/29/17 15:20) Us Leg Venous Doppler Bilat (04/29/17 ) Ketorolac Inj (Toradol Inj) (04/29/17 16:30) Ct Pulmonary Angiogram (04/29/17 ) Iohexol 350 Inj (Omnipaque 350 Inj) (04/29/17 17:20) Ed Discharge Order (04/29/17 18:22) Labs Laboratory Tests Test 04/29/17 15:50 04/29/17 16:00 White Blood Count 5.2 TH/MM3 Red Blood Count 4.15 MIL/MM3 Hemoglobin 12.1 GM/DL Hematocrit 36.1 % Mean Corpuscular Volume 87.0 FL Mean Corpuscular Hemoglobin 29.3 PG Mean Corpuscular Hemoglobin Concent 33.6 % Red Cell Distribution Width 13.3 % Platelet Count 179 TH/MM3 Mean Platelet Volume 9.3 FL Neutrophils (%) (Auto) 63.4 % Lymphocytes (%) (Auto) 29.8 % Monocytes (%) (Auto) 6.1 % Eosinophils (%) (Auto) 0.2 % Basophils (%) (Auto) 0.5 % Neutrophils # (Auto) 3.4 TH/MM3 Lymphocytes # (Auto) 1.5 TH/MM3 Monocytes # (Auto) 0.3 TH/MM3 Eosinophils # (Auto) 0.0 TH/MM3 Basophils # (Auto) 0.0 TH/MM3 CBC Comment DIFF FINAL Differential Comment Blood Urea Nitrogen 14 MG/DL Creatinine 0.79 MG/DL Random Glucose 113 MG/DL Total Protein 6.6 GM/DL Albumin 2.8 GM/DL Calcium Level 8.1 MG/DL Magnesium Level 2.0 MG/DL Alkaline Phosphatase 100 U/L Aspartate Amino Transf (AST/SGOT) 42 U/L Alanine Aminotransferase (ALT/SGPT) 54 U/L Total Bilirubin 0.2 MG/DL Sodium Level 142 MEQ/L Potassium Level 3.9 MEQ/L Chloride Level 106 MEQ/L Carbon Dioxide Level 29.8 MEQ/L Anion Gap 6 MEQ/L Estimat Glomerular Filtration Rate 76 ML/MIN Troponin I LESS THAN 0.02 NG/ML B-Type Natriuretic Peptide 67 PG/ML Urine Collection Type CLEAN CATCH Urine Color YELLOW Urine Turbidity CLEAR Urine pH 5.0 Urine Specific Oneco 1.014 Urine Protein NEG mg/dL Urine Glucose (UA) NEG mg/dL Urine Ketones NEG mg/dL Urine Occult Blood NEG Urine Nitrite NEG Urine Bilirubin NEG Urine Leukocyte Esterase NEG Urine RBC 0-3 /hpf Urine WBC 0-2 /hpf Urine Squamous Epithelial Cells 0-5 /hpf Microscopic Urinalysis Comment CULT NOT INDICATED Urine Collection Time 16:00 [facility] Supervised Visit with MERRICK: No Interpretation(s) EKG: NSR 81bpm. No ST segment elevation or depression. Diagnosis Primary Impression: Bilateral lower extremity edema Patient Instructions: General Instructions Departure Forms: Tests/Procedures Additional Instruction: Please follow up with your primary care physician in 1-2 days. Return to the ED if symptoms worsen. Med/Other Pt SpecificInfo: No Change to Meds Disposition: 01 DISCHARGE HOME Condition: Stable Gema Heller DO Apr 29, 2017 16:16
[2017-04-29 16:17] VITALS: BP 90/53; PULSE 88; RESP 20; TEMP 98.4; O2SAT 93
--- NOTE | 2017-04-29 16:18 | RADRPT ---
EXAM DATE/TIME: 04/29/2017 15:55 [facility] COMPARISON: CHEST SINGLE AP, October 07, 2016, 21:03. INDICATIONS : Short of breath and feet swollen today. MEDICAL HISTORY : Hypercholesterolemia. Hypertension. Hepatitis C. Arthritis. Asthma. Syncope. SURGICAL HISTORY : Appendectomy. Hysterectomy. Oophorectomy. Orthopedic surgery, right ENCOUNTER: Initial ACUITY: 1 day PAIN SCORE: 0/10 LOCATION: Bilateral chest FINDINGS: A single portable frontal view the chest shows a top normal heart size. Pulmonary vascular engorgemen t with some cephalization of flow in the mild interstitial prominence. No effusions. Scoliotic and de generative thoracic spine. Osteoarthritis involving the shoulders. CONCLUSION: Pulmonary vascular engorgement with interstitial prominence raising concern for possible early inters titial pulmonary edema. Dallas Damon Jr., MD on April 29, 2017 at 16:15 Board Certified Radiologist. This report was verified electronically.
[2017-04-29 16:23] LABS: CHLORIDE 106 MEQ/L (98-107); SODIUM (NA) 142 MEQ/L (136-145)
[2017-04-29 16:26] LABS: ALBUMIN 2.8 GM/DL (3.4-5.0); BICARBONATE 29.8 MEQ/L (21.0-32.0); BLOOD UREA NITROGEN 14 MG/DL (7-18); CALCIUM 8.1 MG/DL (8.5-10.1); GLUCOSE,RANDOM 113 MG/DL (74-106)
[2017-04-29 16:29] LABS: ALT (GPT) 54 U/L (10-53); AST (GOT) 42 U/L (15-37); CREATININE 0.79 MG/DL (0.50-1.00); GLOMERULAR FILTRATION RATE 76 ML/MIN (>89)
[2017-04-29 16:29] LABS: RBC, URINE 0-3 /hpf (0-3); SQUAMOUS EPITHELIAL CELL URINE 0-5 /hpf (0-5); URINE COLOR YELLOW (YELLW/STRAW); WBC, URINE 0-2 /hpf (0-5)
[2017-04-29] MEDS ORDERED: KETOROLAC TROMETHAMINE 30 MG/ML (IVP) VIAL IV PUSH ONE (16:30)
[2017-04-29 16:31] LABS: TOTAL BILIRUBIN ADULT 0.2 MG/DL (0.2-1.0); TOTAL PROTEIN 6.6 GM/DL (6.4-8.2)
[2017-04-29 16:32] LABS: ALKALINE PHOSPHATASE 100 U/L (45-117)
[2017-04-29 16:34] LABS: TROPONIN I LESS THAN 0.02 NG/ML (0.02-0.05)
[2017-04-29] MEDS ORDERED: IOHEXOL 350 MG/ML 10 ML VIAL (for RAD DIAG) IVCONTRAST ONE (17:20)
--- NOTE | 2017-04-29 17:40 | RADRPT ---
EXAM DATE/TIME: 04/29/2017 17:08 [facility] COMPARISON: CT ABDOMEN & PELVIS W/O CONTRAST, October 07, 2016, 18:31. INDICATIONS : Short of breath. Bilateral leg swelling. IV CONTRAST: 75 cc Omnipaque 350 (iohexol) IV RADIATION DOSE: 21.74 CTDIvol (mGy) MEDICAL HISTORY : Deep venous thrombosis. Hernia, hiatal. Hypertension.Asthma. SURGICAL HISTORY : Appendectomy. Hysterectomy. ENCOUNTER: Initial ACUITY: 1 day PAIN SCALE: 0/10 LOCATION: Bilateral chest TECHNIQUE: Volumetric scanning of the chest was performed using a pulmonary embolism protocol MIP images were re constructed. Using automated exposure control and adjustment of the mA and/or kV according to patien t size, radiation dose was kept as low as reasonably achievable to obtain optimal diagnostic quality images. DICOM format image data is available electronically for review and comparison. Follow-up recommendations for detected pulmonary nodules are based at a minimum on nodule size and pa tient risk factors according to Fleischner Society Guidelines. FINDINGS: PULMONARY ARTERIES: No filling defects are seen in the pulmonary arteries through the segmental level. LUNGS: There is no consolidation or pneumothorax . No concerning pulmonary nodule is visualized. PLEURAE: There is no pleural thickening or pleural effusion. MEDIASTINUM: There is good visualization of the great vessels of the middle mediastinum. No evidence of mediastin al or hilar adenopathy/mass. MUSCULOSKELETAL: There are mild degenerative changes within the thoracic spine. MISCELLANEOUS: The visualized upper abdominal organs demonstrate no acute abnormality. CONCLUSION: 1. No pulmonary embolus identified. 2. The pulmonary parenchyma is clear. 3. There degenerative changes within the thoracic spine. Mark Fatima MD on April 29, 2017 at 17:24 Board Certified Radiologist. This report was verified electronically.
--- NOTE | 2017-04-29 18:04 | RADRPT ---
EXAM DATE/TIME: 04/29/2017 17:19 [facility] COMPARISON: No previous studies available for comparison. INDICATIONS : Shortness of breath. Bilateral foot swelling. MEDICAL HISTORY : Hypertension. DVT. Head trauma. SURGICAL HISTORY : Appendectomy.Hysterectomy. Back surgery. ENCOUNTER: Initial ACUITY: 1 week PAIN SCORE: 9/10 LOCATION: Bilateral leg. TECHNIQUE: Venous ultrasound of the left and right leg was performed from the inguinal ligament to the proximal calf. Real-time, color Doppler and spectral tracing, compression and augmentation techniques were us ed. FINDINGS: RIGHT LEG: There is normal compressibility of the deep venous system from the inguinal region to the proximal ca lf. No echogenic clot is seen in the lumen of the common femoral, femoral, popliteal, and posterior tibial veins. There is a normal response of the venous system to proximal and distal augmentation an d respiration. LEFT LEG: There is normal compressibility of the deep venous system from the inguinal region to the proximal ca lf. No echogenic clot is seen in the lumen of the common femoral, femoral, popliteal, and posterior tibial veins. There is a normal response of the venous system to proximal and distal augmentation an d respiration. CONCLUSION: The study is negative for deep venous thrombosis bilateral lower extremity. Dallas Joe MD on April 29, 2017 at 18:02 Board Certified Radiologist. This report was verified electronically.
[2017-04-29 18:27] VITALS: BP 92/64
--- NOTE | 2017-04-29 23:19 | EKG ---
Date Performed: 04/29/2017 Time Performed: 15:47:11 PTAGE: 56 years EKG: Sinus rhythm LOW QRS VOLTAGE IN PRECORDIAL LEADS BORDERLINE ECG PREVIOUS TRACING : 10/07/2016 21.25 Compared to prior tracing no significant change DOCTOR: Vj Odom Interpretating Date/Time 04/29/2017 23:18:10
[2017-05-06] MEDS ORDERED: INFL1INJ56 IM (13:50)
[2017-05-06] MEDS ORDERED: ADACINJ3 IM (13:53)
[2017-05-07] MEDS ORDERED: TIZA4CAP3 PO (16:46)
== END 2017-04-29 18:42 | disposition home or self-care (01) ==
LOC: PHED 14:59
DX: R60.0 Localized edema (principal); F17.200 Nicotine dependence, unspecified, uncomplicated; J45.909 Unspecified asthma, uncomplicated; B19.20 Unspecified viral hepatitis C without hepatic coma; I10 Essential (primary) hypertension; Z79.899 Other long term (current) drug therapy
CPT/HCPCS: 71010; 71275; 80053; 81001; 83735; 83880; 84484; 85025; 93005; 93970; 96374; 99285; J1885; Q9967